=== PATIENT | female | born 1950 | race Caucasian/White ===

== ENCOUNTER → 2018-04-17 12:49 | Outpatient (CLI) | payer MEDICARE, BC, SELFPAY ==
--- NOTE | 2018-04-17 13:00 | ECHOD_ITS ---
Reason For Study: dyspnea/SOB Procedure This was a 2D Doppler, Color Flow transthoracic echocardiogram. Exam performed in department. Left Ventricle Mild concentric left ventricular hypertrophy. The estimated ejection fraction is 65 %. Stage 1 diastolic dysfunction. No regional wall motion abnormalities noted. Right Ventricle Normal size and thickness. Normal systolic function. Atria Normal left atrium. Normal right atrium. Normal atrial septum. Mitral Valve Mild diffuse mitral valve thickening. Severe mitral annular calcification extending into the posterior leaflet. Trivial mitral valve insufficiency. Tricuspid Valve Normal tricuspid valve. Trivial tricuspid valve insufficiency. Right ventricular systolic pressure estimated to be 34 mmHg. Aortic Valve Trisinus/trileaflet aortic valve. Mild diffuse aortic valve thickening. Mild aortic stenosis. Pulmonic Valve Normal pulmonic valve. Great Vessels Normal aortic root. Normal arch. Normal inferior vena cava. Inferior vena cava collapse with sniff. Pericardium/Pleural No pericardial effusion. MMode/2D Measurements & Calculations LVIDd: 4.2 cm IVSd: 1.3 cm Ao root diam: 3.3 cm LVIDs: 2.8 cm LVPWd: 1.2 cm LA dimension: 4.2 cm RVDd: 2.6 cm FS: 34.5 % LAV(MOD-bp): 65.3 ml EDV(MOD-sp4): 72.7 ml EDV(MOD-sp2): 68.8 ml LAV(MOD-bp) Indexed: 39.2 ml/m2 ESV(MOD-sp4): 33.1 ml EF(MOD-sp2): 63.3 % LAV(MOD-sp2): 65.6 ml EF(MOD-sp4): 54.5 % LAV(MOD-sp4): 63.6 ml SV(MOD-sp4): 39.6 ml SV(MOD-sp2): 43.5 ml LA A4 area: 19.7 cm2 RA A4 area: 13.3 cm2 Doppler Measurements & Calculations MV E max harinder: 68.4 cm/sec Lat Peak E' Harinder: 4.9 cm/sec Med Peak E' Harinder: 3.2 cm/sec MV A max harinder: 71.8 cm/sec E/E' lat: 14.1 E/E' med: 21.5 MV E/A: 0.95 Ao V2 max: 237.3 cm/sec LV V1 max: 83.9 cm/sec PA V2 max: 73.0 cm/sec Ao max P.5 mmHg LV V1 max P.8 mmHg Ao V2 mean: 172.5 cm/sec LV V1 mean P.6 mmHg Ao mean P.7 mmHg LV V1 mean: 60.3 cm/sec Ao V2 VTI: 51.2 cm LV V1 VTI: 19.3 cm PI end-d harinder: 83.8 cm/sec TR max harinder: 257.5 cm/sec TR max P.6 mmHg Interpretation Summary The estimated ejection fraction is 65 %. Stage 1 diastolic dysfunction. Right ventricular systolic pressure estimated to be 34 mmHg. Mild aortic stenosis. Mild concentric left ventricular hypertrophy. There is no comparison study available. Ordering Physician: Armando Wade Referring Physician: Armando Wade Performed By: Yessy Troy RDCS, RVT
== END ==
PROVIDERS: Family Provider Family Medicine; PCP Family Medicine; Visit Provider Internal Medicine Cardiovascular Disease
DX: R06.02 Shortness of breath (principal); F17.200 Nicotine dependence, unspecified, uncomplicated
CPT/HCPCS: 93306

== ENCOUNTER → 2018-04-24 12:36 | Outpatient (CLI) | payer MEDICARE, BC, SELFPAY ==
--- NOTE | 2018-04-24 12:42 | STE_ITS ---
Reason For Study: SOB Stress Results Protocol: Stress Echocardiogram Maximum Predicted HR: 153 bpm Target HR: 130 bpm% Maximum Pr edicted HR: 92 % DurationHeart Rate Stage (mm:ss) (bpm) BPCom ment Baseline 1:02 14 0 98/ Wolfgang Protocol- Stage 1 3:00 93 138/98 Wolfgang Protocol- Stage 2 3:00 10 6 142/84SOB Wolfgang Protocol- Stage 3 0:38 11 1 / leg fatigue Recovery 70 140/80 Stress Duration: 7:40 mm:ss Maximum Stress HR: 140 bpm Baseline Echocardiogram Findings The estimated ejection fraction is 65 %. Mild concentric left ventricular hypertrophy. Stress Echo Wall motion Data Resting WMIntermediate WMStress WM Resting Wall Motion Wall Motion Stress No regional wall motion No regional wall motion abnormalities noted. abnormalities noted. EKG Data The baseline ECG displays normal sinus rhythm. The patient exercised according to the regular Wolfgang protocol for a total duration of 6:37. The maximum heart rate attained was 111 beats per minute. This was 72% of maximum predicted heart rate. The patient exercised into stage 3 of the Wolfgang protocol. During stress, there were no ST or T wave changes noted to suggest ischemia. No arrhythmias noted. Interpretation Summary The estimated ejection fraction is 65 %. Normal, submaximal, treadmill echocardiogram. Negative for ischemia by EKG and echocardiographic criteria. No anginal symptoms noted. No arrhytmias noted. Appropriate blood pressure response to exercise. Average exercise capacity for age. Test terminated due to leg discomfort and dyspnea. Final LVEF is 75%. Decreased sensitivity due to failure to reach target HR. Ordering Physician: Armando Wade Referring Physician: Armando Wade Performed By: Lydia Price RDCS
== END ==
PROVIDERS: Family Provider Family Medicine; PCP Family Medicine; Visit Provider Internal Medicine Cardiovascular Disease
DX: R06.02 Shortness of breath (principal); R06.00 Dyspnea, unspecified; I10 Essential (primary) hypertension
CPT/HCPCS: 93017; 93350

== ENCOUNTER 2018-10-28 18:55 | Inpatient (IN) | payer MEDICARE, BC, SELFPAY ==
[2018-10-28 18:58] VITALS: BMI 25.8
--- NOTE | 2018-10-28 20:38 | HP.PCM_ITS ---
History of Present Illness Date of Admission: 10/28/18 Chief Complaint: lethargy and generalised pain The patient is a 68 year old F with past medical history of primary sclerosing cholangitis, hypertension and sicca. She was brought in as a direct admit from [facility] on account of incidental finding of low platelets. She had been to [facility] complaint of generalized malaise and feeling tired and having a cough and back pain. As part of her workup, CBC was done which showed platelets of 15,000. Decision was made to the for transfer to [facility]. She is never had such low platelets before and denied any nasal bleed or hematuria or rash. She denied any fever chills, denies taking any antibiotics recently, and palpitations, any abdominal pain, any diarrhea vomiting. She also denied any recent exposure to heparin or Lovenox. She did admit to back pain which she states recently started. Review of systems otherwise negative. She is been admitted to [facility] for thrombocytopenia. [] Past Medical History Past Medical History (Chronic Problems): Chronic Problems (Last Updated 04/03/18 @ 14:44 by Debi Mccabe) Nicotine dependence (Chronic) Hypertension (Chronic) Medical History: Medical History (Last Updated 04/03/18 @ 14:44 by Debi Mccabe) Nicotine dependence (Chronic) F17.200 Hypertension (Chronic) I10 Anxiety F41.9 Biliary cirrhosis K74.5 Esophageal varices I85.00 Mixed hyperlipidemia E78.2 Osteoarthritis M19.90 RLS (restless legs syndrome) G25.81 Sicca M35.00 Spondylosis M47.9 Vertigo R42 Allergies ciprofloxacin Adverse Reaction (Verified 04/03/18 14:34) unkn gabapentin Adverse Reaction (Verified 04/03/18 14:39) hallucination guaifenesin Adverse Reaction (Verified 04/03/18 14:34) racing heart Home Medications: Ambulatory Orders Medication Instructions Recorded alprazolam 0.25 mg tablet 0.25 mg PO BID-TID PRN 03/30/18 meclizine 25 mg tablet 25 mg PO BID PRN 03/30/18 ursodiol 250 mg tablet 250 mg PO BID tab 03/30/18 ranitidine 150 mg capsule 150 mg PO QHS cap 04/03/18 Dextran 70/Hypromellose [Nature's 2 ml OP 4X/DAY 10/28/18 Tears Eye Drops] Nadolol 80 mg PO QDAY 10/28/18 Surgical History: Surgical History (Last Updated 04/03/18 @ 14:51 by Debi Mccabe) History of esophagogastroduodenoscopy Z98.890 Psychiatric History: Attn. deficit disorder MANAGER FORENSIC History: No pertinent MANAGER FORENSIC history Lives: With Family Smoking Status: Current every day smoker Tobacco Use: Cigarettes Alcohol: Occasional Drugs: None - *Family History Maternal Family History: Family History (Last Updated 04/03/18 @ 14:52 by Debi Mccabe) Mother CVA (cerebral vascular accident) Hypertension Father CVA (cerebral vascular accident) Hypertension Brother Heart disease History Items: No pertinent history Review of Systems Constitutional: Reports: Malaise, Weakness, Fatigue. Denies: Anorexia, Chills, Fever, Night Sweats Eyes: Denies: Blurred vision HEENT: Denies: Head Aches, Sinus Congestion, Sinus Drainage Cardiovascular: Denies: Chest Pain, Chest Pressure, Chest Tightness, Palpitations Respiratory: Denies: Cough, Pleuritic Pain, Shortness of Breath, Shortness of breath at rest, Shortness of breath upon exertion, Sputum production Gastrointestinal: Denies: Abdominal Pain, Nausea, Vomiting Genitourinary: Denies: Dysuria Musculoskeletal: Reports: Back Pain, Leg Pain - complains of pain at the back of her lef thigh, which she thinks is due to a muscle she pulled. Denies: Arm Pain, Hand Pain, Joint Pain Skin: Denies: Rash, Wounds Neurological: Denies: Numbness, Tingling, Focal weakness Psychiatric: Denies: Anxiety, Depression, Homicidal Ideations, Suicidal Ideations Hematologic/ Lymphatic: Denies: Easy Bruising, Easy Bleeding VTE Information - Inpt Only VTE Present on Admission: No VTE Mechan Device Prophylaxis: SCD's Reason prophylaxis not ordered:: Medical Contraindication - thrombocytopenia - Physical Exam General: Alert, Oriented x3, Cooperative, No apparent distress HEENT: Atraumatic, PERRLA, EOMI, Normocephalic Oral: Dry Mucosa Neck: Supple, No JVD, Negative Carotid Bruits Lungs: Clear to auscultation, Normal air movement, No rhonchi, No wheeze, No rales Cardiovascular: Regular rate, Regular Rhythm, Normal S1, Normal S2, No murmurs Abdomen: Bowel Sounds Present, Soft, Non Tender, Non-Distended, No Hepato- splenomegaly Extremities: No clubbing, No cyanosis, No edema, Capillary Refill Less than 3 Seconds Skin: No breakdown, Ulcer/ Wound, - - petechial rash on both LEs Musculoskeletal: No Tenderness to Palpation of Joints or Extremities Lymphatic: No Cervical, Supraclavicular, or Inguinal Adenopathy Neurological: Cranial nerves II-XII grossly intact, Neuro grossly intact, Motor Exam 5/5 strength throughout Psych/Mental Status: Normal Affect, Appropriate, Alert and oriented to time, place, person, mood and affect Weight: 141 lb 5.061 oz Body Mass Index (BMI) 25.8 Assessment/Plan 68 y/o admitted with a complaint of generalised malaise, and back pain 1. 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 Petechial rash due to thrombocytopenia * rash on lower extremities. No other evidence of bleeding. * Will monitor for resolution. * 3. History of primary sclerosing cholangitis * on ursodiol and nadolol 4. Hypertension: on nadolol, which is also for her varices from [facility] 5. Sicca: will give natural tears 6. ?UTI * received one dose of IV rocephin in [place] o/a of suspicion for UTI * has no urinary symptoms. * UA showed LE of 25 nd >100 rbc, but no wbc or bacteria * will monitor. * DVT prophylaxis: SCDs GI prophylaxis: PPI Code Visit OBSV E&M: 49801 Initial observation care L3
--- NOTE | 2018-10-28 21:22 | RAD_ITS ---
STUDY: X-RAY - THORACIC SPINE REASON FOR EXAM: Female, 68 years old. Back pain and thrombocytopenia TECHNIQUE: 3 view(s) of the thoracic spine were obtained. COMPARISON: None. FINDINGS: Diffuse spondylosis. Normal alignment. No compression fractures are seen. Soft tissues are unremarkable. RAD/Thoracic Spine 3 Views IMPRESSION: Diffuse spondylosis with normal alignment. Electronically Signed: Ovi Rincon MD at 0:23 EST Tel , Service support ,
[2018-10-28 21:54] VITALS: BP 164/72; PULSE 72; RESP 18; TEMP 36.9; O2SAT 99
--- NOTE | 2018-10-28 21:54 | NURSING ---
IVIG initiated, pt tolerating with no signs of adverse reaction.
[2018-10-28 22:06] LABS: Absolute Lymphocyte Count 1.07 X10^3/ul (0.83-4.51); Absolute Neutrophil Count 7.8 X10^3/uL (2.0-7.7); Basophil# 0.03 X10^3/uL; Basophil% 0.3 % (0-1); Eosinophil# 0.09 X10^3/uL; Eosinophils% 0.9 % (0-5); Hematocrit 39.6 % (37-47); Hemoglobin 13.5 g/dl (12.0-15.0); Lymphocyte # 1.07 X10^3/ul (4.0); Lymphocyte % 10.5 % (19-41); Mean Corp Hgb Conc 34.1 g/gl (32-36); Mean Corpuscular Hgb 28.7 pg (27.0-32.0); Mean Corpuscular Volume 84.1 fL (81-99); Monocyte# 1.22 X10^3/uL; Monocyte% 11.9 % (0-10); Neutrophil # 7.78 X10^3/uL (2.7-7.7); Neutrophil % 76.2 % (47-70); RBC Distribution Width CV 13.9 % (11.6-14.6); RBC Distribution Width SD 43.5 fl (35.1-43.9); Red Blood Count 4.71 M/mm3 (4.2-5.4); White Blood Count 10.2 K/mm3 (4.4-11.0)
[2018-10-28 22:09] VITALS: BP 162/78; PULSE 77; RESP 16; TEMP 36.9; O2SAT 100
[2018-10-28 22:14] LABS: Differential Indicated SCAN CRITERIA MET; POSITIVE COUNT YES; POSITIVE DIFFERENTIAL NO; POSITIVE MORPHOLOGY YES; Platelet Count 11 K/mm3 (150-450)
[2018-10-28 22:25] VITALS: BP 156/75; PULSE 82; RESP 16; TEMP 36.9; O2SAT 100
[2018-10-28 22:28] LABS: Differential Comment SCANNED
[2018-10-28 22:29] LABS: Bacteria 0 SEEN /hpf (None Seen); Mucous, Urine 0 SEEN /hpf (<or=2+); Squamous Epithelial Cells - UA 0 SEEN /hpf (5-10); White Blood Cells 0 SEEN /hpf (0-5)
[2018-10-28 22:29] LABS: Platelet Estimate MKD DEC (ADEQ)
--- NOTE | 2018-10-28 22:30 | RAD_ITS ---
STUDY: X-RAY - LUMBAR SPINE REASON FOR EXAM: Female, 68 years old. Back pain TECHNIQUE: 3 view(s) of the lumbar spine were obtained. COMPARISON: None FINDINGS: Grade 1 L4-5 anterolisthesis. L3-4, L4-5, and L5-S1 degenerative disc disease. Diffuse facet disease. No compression deformities are seen. Vascular calcifications. Osteitis pubis. RAD/Lumbar Spine 2 or 3 Views IMPRESSION: Grade 1 L4-5 anterolisthesis. Multilevel degenerative disease as described. Electronically Signed: Ovi Rincon MD at 1:54 EST Tel , Service support ,
[2018-10-28 22:35] LABS: Color, Urine Red (Yellow); Glucose, Dipstick Normal (Normal); Ketone-Dipstick 15 mg/dl (Negative); Leukocyte Esterase-Dipstick 25 /ul (Negative); Nitrite-Dipstick Negative (Negative); Occult Blood-Urine 250 /ul (Negative); Protein-Dipstick 500 mg/dl (Negative); Specific Gravity, Urine 1.015 (1.002-1.030); Urine Bilirubin Dipstick Negative (Negative); Urine Clarity Cloudy (Clear); Urine Urobilinogen 1 mg/dl (Normal)
[2018-10-28 22:46] LABS: Red Blood Cells-Urine > 100 SEEN /hpf (0-5)
[2018-10-28 23:11] VITALS: BP 181/107; PULSE 63; RESP 16; TEMP 36.9; O2SAT 99
[2018-10-28 23:26] VITALS: BP 184/91; PULSE 67; RESP 14; TEMP 36.8; O2SAT 99
[2018-10-28] MEDS: Famotidine 20 MG Tablet PO (23:31)
[2018-10-28 23:58] VITALS: PULSE 64
[2018-10-29] VITALS (11 sets, daily range): BP systolic 116–175; BP diastolic 55–103; PULSE 62–78; RESP 14–16; TEMP 36.6–37.1; O2SAT 96–100
[2018-10-29] MEDS: hydrALAZINE 20 MG/ML Vial 10 MG IV (00:29)
[2018-10-29] MEDS: HYDROcodone Bitartrate/Apap 5/325 Tablet PO ×3 (00:32→21:14)
[2018-10-29 06:41] LABS: Anion Gap 7 (5-15); BUN 31 mg/dL (7-18); BUN/Creat Ratio 27.7 RATIO (10-20); Calcium,Total 8.2 mg/dL (8.5-10.1); Chloride 103 mmol/L (98-107); Creatinine, Serum 1.12 mg/dL (0.55-1.02); EST Glomerular Filtration Rate 52 mL/min (>60); Est Glom Filt Rate - Afr Amer 62 mL/min (>60); Estimated Creatinine Clearance 38.55 ml/min; Glucose 91 mg/dL (74-106); Potassium 3.6 mmol/L (3.5-5.1); Sodium Level 133 mmol/L (136-145)
[2018-10-29 06:51] LABS: Absolute Lymphocyte Count 0.83 X10^3/ul (0.83-4.51); Absolute Neutrophil Count 3.7 X10^3/uL (2.0-7.7); Basophil# 0.03 X10^3/uL; Basophil% 0.5 % (0-1); Eosinophil# 0.14 X10^3/uL; Eosinophils% 2.5 % (0-5); Hematocrit 34.3 % (37-47); Hemoglobin 11.7 g/dl (12.0-15.0); Lymphocyte # 0.83 X10^3/ul (4.0); Lymphocyte % 14.7 % (19-41); Mean Corp Hgb Conc 34.1 g/gl (32-36); Mean Corpuscular Hgb 28.8 pg (27.0-32.0); Mean Corpuscular Volume 84.5 fL (81-99); Monocyte# 0.97 X10^3/uL; Monocyte% 17.1 % (0-10); Neutrophil # 3.67 X10^3/uL (2.7-7.7); Neutrophil % 64.8 % (47-70); Platelet Count 8 K/mm3 (150-450); RBC Distribution Width CV 14.4 % (11.6-14.6); RBC Distribution Width SD 44.6 fl (35.1-43.9); Red Blood Count 4.06 M/mm3 (4.2-5.4); White Blood Count 5.7 K/mm3 (4.4-11.0)
[2018-10-29 07:23] LABS: Differential Comment SCAN; Differential Indicated SCAN CRITERIA MET; POSITIVE COUNT YES; POSITIVE DIFFERENTIAL NO; POSITIVE MORPHOLOGY YES; Platelet Estimate MKD DEC (ADEQ)
--- NOTE | 2018-10-29 07:32 | PCM.CONS.B ---
Problem List (1) Acute ITP Status: Acute - Consult Date of Consult: 10/29/18 - Reason for Consult HPI: The patient is a 68-year-old female with a past medical history significant for rheumatoid arthritis, sicca syndrome, primary biliary cirrhosis (last EGD 03/201717 grade 1 esophageal varices) who presented to [facility] with complaints of weakness and nausea. CBC was performed and showed a platelet count of 15,000. Last CBC on record was from March 2018 that showed a platelet count in the 200,000 range. She had gross hematuria and UA microscopic was significant for gross blood, bacteria and yeast organisms. She was transferred here for further management. She denies unusual bleeding. She has significant symptoms from sicca syndrome including chronic irritated dry eyes and dry mouth. She is not receiving any symptomatic treatment for this currently. She has a history of primary biliary cirrhosis and was under the care of environmental associate at [facility] until his long term about a year ago. She also has rheumatoid arthritis with significant involvement of the MCPs. She received first dose of IVIG last evening. She has been started on prednisone 60 mg daily. Allergies ciprofloxacin Adverse Reaction (Verified 04/03/18 14:34) unkn gabapentin Adverse Reaction (Verified 04/03/18 14:39) hallucination guaifenesin Adverse Reaction (Verified 04/03/18 14:34) racing heart Current Medications Hydrocodone Bitart/Acetaminophen ([place] 5mg-325mg) 1 tablet PO Q6H PRN PRN PRN Reason: SEVERE PAIN (6-10/10) Last Admin: 10/29/18 00:32 Dose: 1 tablet Alprazolam (Xanax) 0.25 mg PO TID PRN PRN PRN Reason: restless legs Artificial Tears (Tears Naturale, Artificial Tears) 2 drop OPHTHALMIC 4X/DAY ENRIQUE Last Admin: 10/28/18 22:09 Dose: Not Given Famotidine (Pepcid) 20 mg PO QHS ENRIQUE Last Admin: 10/28/18 23:31 Dose: 20 mg Hydralazine HCl (Apresoline Iv) 10 mg IV Q6H PRN PRN PRN Reason: BLOOD PRESSURE Last Admin: 10/29/18 00:29 Dose: 10 mg Immune Globulin 60 gm/ N/A 600 mls @ 32 mls/hr IV X1 ONE Stop: 10/29/18 15:19 Last Admin: 10/28/18 23:11 Dose: 32 mls/hr Magnesium Hydroxide (Milk Of Magnesia) 30 ml PO DAILY PRN PRN PRN Reason: Constipation Meclizine HCl (Antivert) 25 mg PO BID PRN PRN PRN Reason: Vertigo Nadolol (Corgard) 80 mg PO DAILY [facility] Pantoprazole Sodium (Protonix) 40 mg PO DAILY [facility] Prednisone () 60 mg PO DAILY@0800 [facility] Sodium Chloride () 5 - 15 ml IV UD PRN PRN Reason: SALINE FLUSH Ursodiol (Kirby) 250 mg PO BID [facility] Last Admin: 10/28/18 22:12 Dose: Not Given SOC: Smoker. Lives in [place]. ROS: Constitutional: Denies episodes of fever and night sweats. Neuro: Denies PERES, recent changes in vision, hearing and balance. Denies symptoms of neuropathy. HEENT: Denies sinus pain or pressure. Denies nasal discharge. Denies recent sore throat. Resp: Denies hemoptysis. No shortness of breath at rest. CVS: Denies exertional chest pain, PND, orthopnea. Denies lower extremity edema. GI: No melena or hematochezia. : Denies dysuria, frequency. Endo: Denies hot flashes. Heat and cold intolerance. Musculoskeletal: Pain and hands, wrists, left elbow, ankles and feet.. Heme: See above. Psych: Mood has been normal. PHYSICAL EXAM: Vitals: Vital Signs Temp 97.8 F 10/29/18 04:30 Pulse 78 10/29/18 04:30 Resp 14 10/29/18 04:30 BP 138/75 H 10/29/18 04:30 Pulse Ox 100 10/29/18 04:30 Intake & Output 10/27/18 10/28/18 10/29/18 23:59 23:59 23:59 Intake Total 746 / 746 Balance 746 / 746 Weight: 64.1 kg Intake: Oral 320 / 320 IV fluid/meds 426 / 426 GENERAL: No acute distress. EYES: There is bilateral conjunctival injection. ENT: Oral mucosa is dry but there are no petechial or bleeding lesions.. NECK: Supple. LYMPHATIC: No palpable peripheral adenopathy. RESPIRATORY: Inspiratory breath sounds are of diminished intensity in all santos. No rales, wheeze or rhonchi. CARDIOVASCULAR: Rhythm is regular. Normal intensity S1/S2. ABDOMEN: The abdomen is nondistended. Generalized tenderness. No obvious fluid wave. Difficult to assess for splenomegaly. Extremities: No edema. SKIN: Excoriated lesions under the nares of both nostrils. Petechial lesions both lower extremities. NEUROLOGIC: AAO x3; No focal motor weakness. MUSCULOSKELETAL: Significant ulnar deviation of all MCPs bilaterally. Laboratory Results - last 24 hr 10/28/18 10/28/18 10/29/18 21:40 22:20 06:04 WBC 10.2 5.7 RBC 4.71 4.06 L Hgb 13.5 11.7 L Hct 39.6 34.3 L MCV 84.1 84.5 MCH 28.7 28.8 MCHC 34.1 34.1 RDW 13.9 14.4 RDW Differential 43.5 44.6 H Plt Count 11 L* 8 L* MPV TNP Immature Gran % (Auto) 0.200 0.400 Neut % (Auto) 76.2 H 64.8 Lymph % (Auto) 10.5 L 14.7 L [place] % (Auto) 11.9 H 17.1 H Eos % (Auto) 0.9 2.5 Baso % (Auto) 0.3 0.5 Absolute Neuts (auto) 7.8 H 3.7 Absolute Lymphs (auto) 1.07 0.83 Total Counted Not Reportable Not Reportable Differential Comment SCANNED SCAN Diff Path Review May foll May foll Platelet Estimate MKD DEC MKD DEC Sodium Potassium Chloride Carbon Dioxide Anion Gap BUN Creatinine Estim Creat Clear Calc Est GFR (MDRD) Af Amer Est GFR (MDRD) Non-Af BUN/Creatinine Ratio Glucose Calcium Urine Color Red Urine Clarity Cloudy Urine pH 5.0 Ur Specific [place] 1.015 Urine Protein 500 H Urine Glucose (UA) Normal Urine Ketones 15 H Urine Occult Blood 250 H Urine Nitrite Negative Urine Bilirubin Negative Urine Urobilinogen 1 H Ur Leukocyte Esterase 25 H Urine RBC > 100 SEEN Urine WBC 0 SEEN Ur Squamous Epith Cells 0 SEEN Urine Bacteria 0 SEEN Urine Mucus 0 SEEN 10/29/18 06:04 WBC RBC Hgb Hct MCV MCH MCHC RDW RDW Differential Plt Count MPV Immature Gran % (Auto) Neut % (Auto) Lymph % (Auto) [place] % (Auto) Eos % (Auto) Baso % (Auto) Absolute Neuts (auto) Absolute Lymphs (auto) Total Counted Differential Comment Diff Path Review Platelet Estimate Sodium 133 L Potassium 3.6 Chloride 103 Carbon Dioxide 23.0 Anion Gap 7 BUN 31 H Creatinine 1.12 H Estim Creat Clear Calc 38.55 Est GFR (MDRD) Af Amer 62 Est GFR (MDRD) Non-Af 52 L BUN/Creatinine Ratio 27.7 H Glucose 91 Calcium 8.2 L Urine Color Urine Clarity Urine pH Ur Specific [place] Urine Protein Urine Glucose (UA) Urine Ketones Urine Occult Blood Urine Nitrite Urine Bilirubin Urine Urobilinogen Ur Leukocyte Esterase Urine RBC Urine WBC Ur Squamous Epith Cells Urine Bacteria Urine Mucus ASSESSMENT/PLAN: 1) Thrombocytopenia. Assessment: -Presented with gross hematuria with UTI. -No other bleeding. -The degree of thrombocytopenia is out of proportion to what one would expect with hypersplenism secondary to cirrhosis. -Acute ITP working diagnosis. Likely there is been some degree of chronic thrombocytopenia in the last few months. -Tolerated IVIG well but creatinine is increased this morning. Plan: -Begin IVFs. -Repeat BMP prior to tonight's dose IVIG. -Continue prednisone. -Monitor counts.
--- NOTE | 2018-10-29 07:45 | CON.PCM_ITS ---
Problem List (1) Acute ITP Status: Acute - Consult Date of Consult: 10/29/18 - Reason for Consult HPI: The patient is a 68-year-old female with a past medical history significant for rheumatoid arthritis, sicca syndrome, primary biliary cirrhosis (last EGD 17 grade 1 esophageal varices) who presented to [facility] with complaints of weakness and nausea. CBC was performed and showed a platelet count of 15,000. Last CBC on record was from March 2018 that showed a platelet count in the 200,000 range. She had gross hematuria and UA microscopic was significant for gross blood, bacteria and yeast organisms. She was transferred here for further management. She denies unusual bleeding. She has significant symptoms from sicca syndrome including chronic irritated dry eyes and dry mouth. She is not receiving any symptomatic treatment for this currently. She has a history of primary biliary cirrhosis and was under the care of grid operator at [facility] until his assisted about a year ago. She also has rheumatoid arthritis with significant involvement of the MCPs. She received first dose of IVIG last evening. She has been started on prednisone 60 mg daily. Allergies ciprofloxacin Adverse Reaction (Verified 04/03/18 14:34) unkn gabapentin Adverse Reaction (Verified 04/03/18 14:39) hallucination guaifenesin Adverse Reaction (Verified 04/03/18 14:34) racing heart Current Medications Hydrocodone Bitart/Acetaminophen ([place] 5mg-325mg) 1 tablet PO Q6H PRN PRN PRN Reason: SEVERE PAIN (6-10/10) Last Admin: 10/29/18 00:32 Dose: 1 tablet Alprazolam (Xanax) 0.25 mg PO TID PRN PRN PRN Reason: restless legs Artificial Tears (Tears Naturale, Artificial Tears) 2 drop OPHTHALMIC 4X/DAY ENRIQUE Last Admin: 10/28/18 22:09 Dose: Not Given Famotidine (Pepcid) 20 mg PO QHS ENRIQUE Last Admin: 10/28/18 23:31 Dose: 20 mg Hydralazine HCl (Apresoline Iv) 10 mg IV Q6H PRN PRN PRN Reason: BLOOD PRESSURE Last Admin: 10/29/18 00:29 Dose: 10 mg Immune Globulin 60 gm/ N/A 600 mls @ 32 mls/hr IV X1 ONE Stop: 10/29/18 15:19 Last Admin: 10/28/18 23:11 Dose: 32 mls/hr Magnesium Hydroxide (Milk Of Magnesia) 30 ml PO DAILY PRN PRN PRN Reason: Constipation Meclizine HCl (Antivert) 25 mg PO BID PRN PRN PRN Reason: Vertigo Nadolol (Corgard) 80 mg PO DAILY [facility] Pantoprazole Sodium (Protonix) 40 mg PO DAILY [facility] Prednisone () 60 mg PO DAILY@0800 [facility] Sodium Chloride () 5 - 15 ml IV UD PRN PRN Reason: SALINE FLUSH Ursodiol (Kirby) 250 mg PO BID [facility] Last Admin: 10/28/18 22:12 Dose: Not Given SOC: Smoker. Lives in [place]. ROS: Constitutional: Denies episodes of fever and night sweats. Neuro: Denies PERES, recent changes in vision, hearing and balance. Denies symptoms of neuropathy. HEENT: Denies sinus pain or pressure. Denies nasal discharge. Denies recent sore throat. Resp: Denies hemoptysis. No shortness of breath at rest. CVS: Denies exertional chest pain, PND, orthopnea. Denies lower extremity edema. GI: No melena or hematochezia. : Denies dysuria, frequency. Endo: Denies hot flashes. Heat and cold intolerance. Musculoskeletal: Pain and hands, wrists, left elbow, ankles and feet.. Heme: See above. Psych: Mood has been normal. PHYSICAL EXAM: Vitals: Vital Signs Temp 97.8 F 10/29/18 04:30 Pulse 78 10/29/18 04:30 Resp 14 10/29/18 04:30 BP 138/75 H 10/29/18 04:30 Pulse Ox 100 10/29/18 04:30 Intake & Output 10/27/18 10/28/18 10/29/18 23:59 23:59 23:59 Intake Total 746 / 746 Balance 746 / 746 Weight: 64.1 kg Intake: Oral 320 / 320 IV fluid/meds 426 / 426 GENERAL: No acute distress. EYES: There is bilateral conjunctival injection. ENT: Oral mucosa is dry but there are no petechial or bleeding lesions.. NECK: Supple. LYMPHATIC: No palpable peripheral adenopathy. RESPIRATORY: Inspiratory breath sounds are of diminished intensity in all santos. No rales, wheeze or rhonchi. CARDIOVASCULAR: Rhythm is regular. Normal intensity S1/S2. ABDOMEN: The abdomen is nondistended. Generalized tenderness. No obvious fluid wave. Difficult to assess for splenomegaly. Extremities: No edema. SKIN: Excoriated lesions under the nares of both nostrils. Petechial lesions both lower extremities. NEUROLOGIC: AAO x3; No focal motor weakness. MUSCULOSKELETAL: Significant ulnar deviation of all MCPs bilaterally. Laboratory Results - last 24 hr 10/28/18 10/28/18 10/29/18 21:40 22:20 06:04 WBC 10.2 5.7 RBC 4.71 4.06 L Hgb 13.5 11.7 L Hct 39.6 34.3 L MCV 84.1 84.5 MCH 28.7 28.8 MCHC 34.1 34.1 RDW 13.9 14.4 RDW Differential 43.5 44.6 H Plt Count 11 L* 8 L* MPV TNP Immature Gran % (Auto) 0.200 0.400 Neut % (Auto) 76.2 H 64.8 Lymph % (Auto) 10.5 L 14.7 L [place] % (Auto) 11.9 H 17.1 H Eos % (Auto) 0.9 2.5 Baso % (Auto) 0.3 0.5 Absolute Neuts (auto) 7.8 H 3.7 Absolute Lymphs (auto) 1.07 0.83 Total Counted Not Reportable Not Reportable Differential Comment SCANNED SCAN Diff Path Review May foll May foll Platelet Estimate MKD DEC MKD DEC Sodium Potassium Chloride Carbon Dioxide Anion Gap BUN Creatinine Estim Creat Clear Calc Est GFR (MDRD) Af Amer Est GFR (MDRD) Non-Af BUN/Creatinine Ratio Glucose Calcium Urine Color Red Urine Clarity Cloudy Urine pH 5.0 Ur Specific [place] 1.015 Urine Protein 500 H Urine Glucose (UA) Normal Urine Ketones 15 H Urine Occult Blood 250 H Urine Nitrite Negative Urine Bilirubin Negative Urine Urobilinogen 1 H Ur Leukocyte Esterase 25 H Urine RBC > 100 SEEN Urine WBC 0 SEEN Ur Squamous Epith Cells 0 SEEN Urine Bacteria 0 SEEN Urine Mucus 0 SEEN 10/29/18 06:04 WBC RBC Hgb Hct MCV MCH MCHC RDW RDW Differential Plt Count MPV Immature Gran % (Auto) Neut % (Auto) Lymph % (Auto) [place] % (Auto) Eos % (Auto) Baso % (Auto) Absolute Neuts (auto) Absolute Lymphs (auto) Total Counted Differential Comment Diff Path Review Platelet Estimate Sodium 133 L Potassium 3.6 Chloride 103 Carbon Dioxide 23.0 Anion Gap 7 BUN 31 H Creatinine 1.12 H Estim Creat Clear Calc 38.55 Est GFR (MDRD) Af Amer 62 Est GFR (MDRD) Non-Af 52 L BUN/Creatinine Ratio 27.7 H Glucose 91 Calcium 8.2 L Urine Color Urine Clarity Urine pH Ur Specific [place] Urine Protein Urine Glucose (UA) Urine Ketones Urine Occult Blood Urine Nitrite Urine Bilirubin Urine Urobilinogen Ur Leukocyte Esterase Urine RBC Urine WBC Ur Squamous Epith Cells Urine Bacteria Urine Mucus ASSESSMENT/PLAN: 1) Thrombocytopenia. Assessment: -Presented with gross hematuria with UTI. -No other bleeding. -The degree of thrombocytopenia is out of proportion to what one would expect with hypersplenism secondary to cirrhosis. -Acute ITP working diagnosis. Likely there is been some degree of chronic thrombocytopenia in the last few months. -Tolerated IVIG well but creatinine is increased this morning. Plan: -Begin IVFs. -Repeat BMP prior to tonight's dose IVIG. -Continue prednisone. -Monitor counts.
[2018-10-29] MEDS: 0.9% Normal Saline 1,000 ML 125 ML IV ×2 (08:57→17:06)
[2018-10-29] MEDS: predniSONE 20 MG Tablet 60 MG PO (08:58)
[2018-10-29] MEDS: Nadolol 40 MG Tablet 80 MG PO (09:20)
[2018-10-29] MEDS: Pantoprazole Sodium 40 MG Tablet PO (09:22)
--- NOTE | 2018-10-29 09:30 | CASEMGMT ---
RN IRINA Face to Face with patient for initial transition planning/care coordination assessment. RN CM introduced self and role at [facility]. Patient lying in bed, alert and oriented. Patient willing to participate in assessment and is able to answer all questions appropriately. Care providers, pharmacy, and demographics verified. Patient wishes to discharge home, denies need for home health at this time. Patient states she has no further needs or concerns at this time. CM to follow for discharge planning needs that may arise. PCP: Malcolm Mueller Specialists: None Preferred Pharmacy: [facility] Insurance: rickey DOMINGUEZ Prescription Benefit: Yes Living Will/HPOA: Yes, patient cannot remember who is HPOA LNOK: Sons Living Arrangements: Patient lives with son in 2 story home, patient independent Transportation: Self or sons DME/HHC: Patient denies needs for HHC or DME Disposition Plan: Patient to discharge with family support and follow-up plans in place. Mattie PIZARRO, RN, CM
--- NOTE | 2018-10-29 09:33 | PCM.PN.HOSP ---
Patient Problems: Active and Suspected Problems (Last Updated 04/03/18 @ 14:44 by Debi Mccabe) Acute ITP (Acute) Subjective: back pain, chronic, which is why she was sleeping on the couch. Vitals/I&O's: Vital Signs Temp Pulse Resp BP Pulse Ox 37.1 C 76 16 144/79 H 96 10/29/18 08:58 10/29/18 08:58 10/29/18 08:58 10/29/18 08:58 10/29/18 08:58 Oxygen Delivery Method Room Air Weight: 64.1 kg Body Mass Index (BMI) 25.8 Intake and Output for Last 24 Hours 10/27/18 10/28/18 10/29/18 23:59 23:59 23:59 Intake Total 746 / 746 Balance 746 / 746 General: Alert, Cooperative, No apparent distress HEENT: Atraumatic, Normocephalic Oral: Moist Mucosa, No Gingival or Mucosal Lesions/ Ulcerations Neck: No Nodes, Thyroid Normal Size and Texture Lungs: Clear to auscultation, Normal air movement, No rhonchi, No wheeze Cardiovascular: Regular rate, Regular Rhythm, Normal S1, Normal S2, No murmurs Abdomen: Bowel Sounds Present, Soft, Non Tender, Non-Distended, No Hepato-splenomegaly Extremities: No edema, No Calf Tenderness Musculoskeletal: - - ulnar deviation of digits. Psych/Mental Status: Normal Affect, Appropriate Laboratory Results 10/28/18 21:40: WBC 10.2, RBC 4.71, Hgb 13.5, Hct 39.6, MCV 84.1, MCH 28.7, MCHC 34.1, RDW 13.9, RDW Differential 43.5, Plt Count 11 L*, MPV TNP, Immature Gran % (Auto) 0.200, Neut % (Auto) 76.2 H, Lymph % (Auto) 10.5 L, [place] % (Auto) 11.9 H, Eos % (Auto) 0.9, Baso % (Auto) 0.3, Absolute Neuts (auto) 7.8 H, Absolute Lymphs (auto) 1.07, Total Counted Not Reportable, Differential Comment SCANNED, Diff Path Review March, Platelet Estimate MKD 10/28/18 22:20: Urine Color Red, Urine Clarity Cloudy, Urine pH 5.0, Ur Specific [place] 1.015, Urine Protein 500 H, Urine Glucose (UA) Normal, Urine Ketones 15 H, Urine Occult Blood 250 H, Urine Nitrite Negative, Urine Bilirubin Negative, Urine Urobilinogen 1 H, Ur Leukocyte Esterase 25 H, Urine RBC > 100 SEEN, Urine WBC 0 SEEN, Ur Squamous Epith Cells 0 SEEN, Urine Bacteria 0 SEEN, Urine Mucus 0 SEEN 10/29/18 06:04: WBC 5.7, RBC 4.06 L, Hgb 11.7 L, Hct 34.3 L, MCV 84.5, MCH 28.8, MCHC 34.1, RDW 14.4, RDW Differential 44.6 H, Plt Count 8 L*, Immature Gran % (Auto) 0.400, Neut % (Auto) 64.8, Lymph % (Auto) 14.7 L, [place] % (Auto) 17.1 H, Eos % (Auto) 2.5, Baso % (Auto) 0.5, Absolute Neuts (auto) 3.7, Absolute Lymphs (auto) 0.83, Total Counted Not Reportable, Differential Comment SCAN, Diff Path Review March foll, Platelet Estimate MKD 10/29/18 06:04: Sodium 133 L, Potassium 3.6, Chloride 103, Carbon Dioxide 23.0, Anion Gap 7, BUN 31 H, Creatinine 1.12 H, Estim Creat Clear Calc 38.55, Est GFR (MDRD) Af Amer 62, Est GFR (MDRD) Non-Af 52 L, BUN/Creatinine Ratio 27.7 H, Glucose 91, Calcium 8.2 L Current Medications Hydrocodone Bitart/Acetaminophen ([place] 5mg-325mg) 1 tablet PO Q6H PRN PRN PRN Reason: SEVERE PAIN (6-10/10) Last Admin: 10/29/18 09:22 Dose: 1 tablet Alprazolam (Xanax) 0.25 mg PO TID PRN PRN PRN Reason: restless legs Artificial Tears (Tears Naturale, Artificial Tears) 2 drop OPHTHALMIC 4X/DAY [facility] Last Admin: 10/29/18 09:23 Dose: Not Given Famotidine (Pepcid) 20 mg PO QHS [facility] Last Admin: 10/28/18 23:31 Dose: 20 mg Hydralazine HCl (Apresoline Iv) 10 mg IV Q6H PRN PRN PRN Reason: BLOOD PRESSURE Last Admin: 10/29/18 00:29 Dose: 10 mg Immune Globulin 60 gm/ N/A 600 mls @ 32 mls/hr IV X1 ONE Stop: 10/29/18 15:19 Last Admin: 10/28/18 23:11 Dose: 32 mls/hr Sodium Chloride () 1,000 mls @ 125 mls/hr IV .Q8H ENRIQUE Last Admin: 10/29/18 08:57 Dose: 125 mls/hr Magnesium Hydroxide (Milk Of Magnesia) 30 ml PO DAILY PRN PRN PRN Reason: Constipation Meclizine HCl (Antivert) 25 mg PO BID PRN PRN PRN Reason: Vertigo Nadolol (Corgard) 80 mg PO DAILY [facility] Last Admin: 10/29/18 09:20 Dose: 80 mg Pantoprazole Sodium (Protonix) 40 mg PO DAILY [facility] Last Admin: 10/29/18 09:22 Dose: 40 mg Prednisone () 60 mg PO DAILY@0800 [facility] Last Admin: 10/29/18 08:58 Dose: 60 mg Sodium Chloride () 5 - 15 ml IV UD PRN PRN Reason: SALINE FLUSH Ursodiol (Kirby) 250 mg PO BID [facility] Last Admin: 10/29/18 09:20 Dose: Not Given Medical Necessity - Tobacco Use Smoking Status: Current every day smoker Tobacco Use: Cigarettes Assessment/Plan All Active Problems (Last Updated 04/03/18 @ 14:44 by Debi Mccabe) Acute ITP (Acute) 1. Acute ITP previously normal, acutely dropped. received IVIG last night and again today (will check BMP beforehand) per Dr. Saenz, if improved tomorrow, even if slight, she could be discharged home with prednisone (no taper) with follow up with hematology 2. Suspected RA obvious ulnar deviation of hands never seen a enrollment management manager advised patient, given her multiple autoimmune disorders, to see rheumatology 3. PBC need to be reestablished with GI as outpt 4. DVT proph: chemical prophylaxis is contraindicated with severe thrombocytopenia and given the severity of the thrombocytopenia, would DC SCDs as could cause bleeding/bruising. Code Visit Inpatient E&M: 58674 Subs Hosp L2
--- NOTE | 2018-10-29 09:40 | PN_ITS ---
Patient Problems: Active and Suspected Problems (Last Updated 04/03/18 @ 14:44 by Debi Mccabe) Acute ITP (Acute) Subjective: back pain, chronic, which is why she was sleeping on the couch. Vitals/I&O's: Vital Signs Temp Pulse Resp BP Pulse Ox 37.1 C 76 16 144/79 H 96 10/29/18 08:58 10/29/18 08:58 10/29/18 08:58 10/29/18 08:58 10/29/18 08:58 Oxygen Delivery Method Room Air Weight: 64.1 kg Body Mass Index (BMI) 25.8 Intake and Output for Last 24 Hours 10/27/18 10/28/18 10/29/18 23:59 23:59 23:59 Intake Total 746 / 746 Balance 746 / 746 General: Alert, Cooperative, No apparent distress HEENT: Atraumatic, Normocephalic Oral: Moist Mucosa, No Gingival or Mucosal Lesions/ Ulcerations Neck: No Nodes, Thyroid Normal Size and Texture Lungs: Clear to auscultation, Normal air movement, No rhonchi, No wheeze Cardiovascular: Regular rate, Regular Rhythm, Normal S1, Normal S2, No murmurs Abdomen: Bowel Sounds Present, Soft, Non Tender, Non-Distended, No Hepato- splenomegaly Extremities: No edema, No Calf Tenderness Musculoskeletal: - - ulnar deviation of digits. Psych/Mental Status: Normal Affect, Appropriate Laboratory Results 10/28/18 21:40: WBC 10.2, RBC 4.71, Hgb 13.5, Hct 39.6, MCV 84.1, MCH 28.7, MCHC 34.1, RDW 13.9, RDW Differential 43.5, Plt Count 11 L*, MPV TNP, Immature Gran % (Auto) 0.200, Neut % (Auto) 76.2 H, Lymph % (Auto) 10.5 L, [place] % (Auto) 11.9 H, Eos % (Auto) 0.9, Baso % (Auto) 0.3, Absolute Neuts (auto) 7.8 H, Absolute Lymphs (auto) 1.07, Total Counted Not Reportable, Differential Comment SCANNED, Diff Path Review March, Platelet Estimate MKD 10/28/18 22:20: Urine Color Red, Urine Clarity Cloudy, Urine pH 5.0, Ur Specific [place] 1.015, Urine Protein 500 H, Urine Glucose (UA) Normal, Urine Ketones 15 H, Urine Occult Blood 250 H, Urine Nitrite Negative, Urine Bilirubin Negative, Urine Urobilinogen 1 H, Ur Leukocyte Esterase 25 H, Urine RBC > 100 SEEN, Urine WBC 0 SEEN, Ur Squamous Epith Cells 0 SEEN, Urine Bacteria 0 SEEN, Urine Mucus 0 SEEN 10/29/18 06:04: WBC 5.7, RBC 4.06 L, Hgb 11.7 L, Hct 34.3 L, MCV 84.5, MCH 28.8, MCHC 34.1, RDW 14.4, RDW Differential 44.6 H, Plt Count 8 L*, Immature Gran % (Auto) 0.400, Neut % (Auto) 64.8, Lymph % (Auto) 14.7 L, [place] % (Auto) 17.1 H, Eos % (Auto) 2.5, Baso % (Auto) 0.5, Absolute Neuts (auto) 3.7, Absolute Lymphs (auto) 0.83, Total Counted Not Reportable, Differential Comment SCAN, Diff Path Review March foll, Platelet Estimate MKD 10/29/18 06:04: Sodium 133 L, Potassium 3.6, Chloride 103, Carbon Dioxide 23.0, Anion Gap 7, BUN 31 H, Creatinine 1.12 H, Estim Creat Clear Calc 38.55, Est GFR (MDRD) Af Amer 62, Est GFR (MDRD) Non-Af 52 L, BUN/Creatinine Ratio 27.7 H, Glucose 91, Calcium 8.2 L Current Medications Hydrocodone Bitart/Acetaminophen ([place] 5mg-325mg) 1 tablet PO Q6H PRN PRN PRN Reason: SEVERE PAIN (6-10/10) Last Admin: 10/29/18 09:22 Dose: 1 tablet Alprazolam (Xanax) 0.25 mg PO TID PRN PRN PRN Reason: restless legs Artificial Tears (Tears Naturale, Artificial Tears) 2 drop OPHTHALMIC 4X/DAY [facility] Last Admin: 10/29/18 09:23 Dose: Not Given Famotidine (Pepcid) 20 mg PO QHS [facility] Last Admin: 10/28/18 23:31 Dose: 20 mg Hydralazine HCl (Apresoline Iv) 10 mg IV Q6H PRN PRN PRN Reason: BLOOD PRESSURE Last Admin: 10/29/18 00:29 Dose: 10 mg Immune Globulin 60 gm/ N/A 600 mls @ 32 mls/hr IV X1 ONE Stop: 10/29/18 15:19 Last Admin: 10/28/18 23:11 Dose: 32 mls/hr Sodium Chloride () 1,000 mls @ 125 mls/hr IV .Q8H NERIQUE Last Admin: 10/29/18 08:57 Dose: 125 mls/hr Magnesium Hydroxide (Milk Of Magnesia) 30 ml PO DAILY PRN PRN PRN Reason: Constipation Meclizine HCl (Antivert) 25 mg PO BID PRN PRN PRN Reason: Vertigo Nadolol (Corgard) 80 mg PO DAILY [facility] Last Admin: 10/29/18 09:20 Dose: 80 mg Pantoprazole Sodium (Protonix) 40 mg PO DAILY [facility] Last Admin: 10/29/18 09:22 Dose: 40 mg Prednisone () 60 mg PO DAILY@0800 [facility] Last Admin: 10/29/18 08:58 Dose: 60 mg Sodium Chloride () 5 - 15 ml IV UD PRN PRN Reason: SALINE FLUSH Ursodiol (Kirby) 250 mg PO BID [facility] Last Admin: 10/29/18 09:20 Dose: Not Given Medical Necessity - Tobacco Use Smoking Status: Current every day smoker Tobacco Use: Cigarettes Assessment/Plan All Active Problems (Last Updated 04/03/18 @ 14:44 by Debi Mccabe) Acute ITP (Acute) 1. Acute ITP * previously normal, acutely dropped. * received IVIG last night and again today (will check BMP beforehand) * per Dr. Saenz, if improved tomorrow, even if slight, she could be discharged home with prednisone (no taper) with follow up with hematology 2. 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 PBC * need to be reestablished with GI as outpt 4. DVT proph: chemical prophylaxis is contraindicated with severe thrombocytopenia and given the severity of the thrombocytopenia, would DC SCDs as could cause bleeding/bruising. Code Visit Inpatient E&M: 52629 Subs Hosp L2
[2018-10-29 10:05] LABS: Pathologist Review Reviewed
[2018-10-29 10:05] LABS: Pathologist Review Reviewed
[2018-10-29 13:33] LABS: Anion Gap 7 (5-15); BUN 35 mg/dL (7-18); BUN/Creat Ratio 28.2 RATIO (10-20); Calcium,Total 8.2 mg/dL (8.5-10.1); Chloride 102 mmol/L (98-107); Creatinine, Serum 1.24 mg/dL (0.55-1.02); EST Glomerular Filtration Rate 46 mL/min (>60); Est Glom Filt Rate - Afr Amer 55 mL/min (>60); Estimated Creatinine Clearance 34.82 ml/min; Glucose 159 mg/dL (74-106); Potassium 3.6 mmol/L (3.5-5.1); Sodium Level 132 mmol/L (136-145)
[2018-10-29] MEDS: Magnesium Hydroxide 30 ML UDC PO (13:41)
--- NOTE | 2018-10-29 18:34 | NURSING ---
Dr. Tripp called in and spoke to family per request. New order obtained for platelet level this evening.
[2018-10-29] MEDS: Famotidine 20 MG Tablet PO (21:10)
[2018-10-29] MEDS: Ursodiol 250 MG Tablet PO (21:10)
[2018-10-29] MEDS: ALPRAZolam 0.25 MG Tablet PO (21:14)
[2018-10-30] VITALS (16 sets, daily range): BP systolic 126–164; BP diastolic 69–92; PULSE 53–73; RESP 16–18; TEMP 36.2–37.2; O2SAT 96–100
[2018-10-30] MEDS: 0.9% Normal Saline 1,000 ML 125 ML IV ×3 (00:26→22:01)
[2018-10-30 06:41] LABS: Absolute Lymphocyte Count 1.28 X10^3/ul (0.83-4.51); Absolute Neutrophil Count 6.1 X10^3/uL (2.0-7.7); Basophil# 0.01 X10^3/uL; Basophil% 0.1 % (0-1); Eosinophil# 0.07 X10^3/uL; Eosinophils% 0.8 % (0-5); Hemoglobin 8.8 g/dl (12.0-15.0); Lymphocyte # 1.28 X10^3/ul (4.0); Lymphocyte % 15.1 % (19-41); Mean Corp Hgb Conc 33.8 g/gl (32-36); Mean Corpuscular Hgb 28.2 pg (27.0-32.0); Mean Corpuscular Volume 83.3 fL (81-99); Monocyte# 1.04 X10^3/uL; Monocyte% 12.2 % (0-10); Neutrophil # 6.08 X10^3/uL (2.7-7.7); Neutrophil % 71.6 % (47-70); RBC Distribution Width CV 15.1 % (11.6-14.6); RBC Distribution Width SD 46.8 fl (35.1-43.9); Red Blood Count 3.12 M/mm3 (4.2-5.4); White Blood Count 8.5 K/mm3 (4.4-11.0)
[2018-10-30 06:46] LABS: Anion Gap 9 (5-15); BUN 35 mg/dL (7-18); BUN/Creat Ratio 34.3 RATIO (10-20); Calcium,Total 7.9 mg/dL (8.5-10.1); Chloride 111 mmol/L (98-107); Creatinine, Serum 1.02 mg/dL (0.55-1.02); EST Glomerular Filtration Rate 57 mL/min (>60); Est Glom Filt Rate - Afr Amer 69 mL/min (>60); Estimated Creatinine Clearance 42.33 ml/min; Glucose 98 mg/dL (74-106); Potassium 3.7 mmol/L (3.5-5.1); Sodium Level 142 mmol/L (136-145)
[2018-10-30 06:47] LABS: Differential Indicated SCAN CRITERIA MET; POSITIVE COUNT YES; POSITIVE DIFFERENTIAL NO; POSITIVE MORPHOLOGY YES; Platelet Count 8 K/mm3 (150-450)
--- NOTE | 2018-10-30 06:51 | NURSING ---
Platelet results of 8 given to Gisela RIVAS.
[2018-10-30 06:59] LABS: Anisocytosis 1+; Platelet Estimate MKD DEC (ADEQ)
[2018-10-30] MEDS: Pantoprazole Sodium 40 MG Tablet PO (08:10)
[2018-10-30] MEDS: predniSONE 20 MG Tablet 60 MG PO (08:21)
[2018-10-30] MEDS: HYDROcodone Bitartrate/Apap 5/325 Tablet PO (08:22)
[2018-10-30 09:08] LABS: Fibrinogen 322 mg/dl (203-444); International Normalized Ratio 1.2; Partial Thromboplast Time 34.3 Seconds (24.1-36.2); Prothrombin Time (Protime)PT. 15.1 SECONDS (11.7-14.9)
--- NOTE | 2018-10-30 10:34 | PCM.PROGNOTE ---
Patient Problems: Active and Suspected Problems (Last Updated 04/03/18 @ 14:44 by Debi Mccabe) Acute ITP (Acute) Subjective: Having painless gross hematuria. No other complaints. - Physical Exam General: Alert Lungs: Normal air movement Skin: - - Stable petechiae. Vital Signs Temp Pulse Resp BP Pulse Ox 97.6 F L 63 16 126/69 H 96 10/30/18 03:40 10/30/18 04:02 10/30/18 03:40 10/30/18 03:40 10/30/18 03:40 Oxygen Delivery Method Room Air Weight: 64.1 kg Body Mass Index (BMI) 25.8 Intake and Output for Last 24 Hours 10/28/18 10/29/18 10/30/18 23:59 23:59 23:59 Intake Total 746 / 746 2756 / 2756 Output Total 100 / 100 Balance 746 / 746 2656 / 2656 Laboratory Tests Past 24 Hrs 10/29/18 10/29/18 10/30/18 13:06 19:01 05:35 WBC 8.5 RBC 3.12 L Hgb 8.8 L Hct 26.0 L MCV 83.3 MCH 28.2 MCHC 33.8 RDW 15.1 H RDW Differential 46.8 H Plt Count 9 L* 8 L* Immature Gran % (Auto) 0.200 Neut % (Auto) 71.6 H Lymph % (Auto) 15.1 L [place] % (Auto) 12.2 H Eos % (Auto) 0.8 Baso % (Auto) 0.1 Absolute Neuts (auto) 6.1 Absolute Lymphs (auto) 1.28 Total Counted Not Reportable Diff Path Review May foll Platelet Estimate MKD DEC Anisocytosis 1+ PT INR APTT Fibrinogen Sodium 132 L Potassium 3.6 Chloride 102 Carbon Dioxide 23.0 Anion Gap 7 BUN 35 H Creatinine 1.24 H Estim Creat Clear Calc 34.82 Est GFR (MDRD) Af Amer 55 L Est GFR (MDRD) Non-Af 46 L BUN/Creatinine Ratio 28.2 H Glucose 159 H Calcium 8.2 L 10/30/18 10/30/18 05:35 08:40 WBC RBC Hgb Hct MCV MCH MCHC RDW RDW Differential Plt Count Immature Gran % (Auto) Neut % (Auto) Lymph % (Auto) [place] % (Auto) Eos % (Auto) Baso % (Auto) Absolute Neuts (auto) Absolute Lymphs (auto) Total Counted Diff Path Review Platelet Estimate Anisocytosis PT 15.1 H INR 1.2 APTT 34.3 Fibrinogen 322 Sodium 142 Potassium 3.7 Chloride 111 H Carbon Dioxide 22.0 Anion Gap 9 BUN 35 H Creatinine 1.02 Estim Creat Clear Calc 42.33 Est GFR (MDRD) Af Amer 69 Est GFR (MDRD) Non-Af 57 L BUN/Creatinine Ratio 34.3 H Glucose 98 Calcium 7.9 L Medical Necessity - Tobacco Use Smoking Status: Current every day smoker Tobacco Use: Cigarettes Assessment/Plan All Active Problems (Last Updated 04/03/18 @ 14:44 by Debi Mccabe) Acute ITP (Acute) 1) Acute ITP. Assessment: -Still having gross hematuria. -No other bleeding issues. -No response to IVIG as of yet. -Cr decreasing. Plan: -IVIG today 500 mg/kg. -Continue hydration. -Continue prednisone. -Monitor counts. -Recheck UA. If hematuria confirmed, then urology evaluation.
[2018-10-30] MEDS: Ursodiol 250 MG Tablet PO ×2 (10:52→22:03)
--- NOTE | 2018-10-30 11:13 | PN_ITS ---
Patient Problems: Active and Suspected Problems (Last Updated 04/03/18 @ 14:44 by Debi Mccabe) Acute ITP (Acute) Subjective: Patient is a 68-year-old female with a past medical history of rheumatoid arthritis, biliary cirrhosis, esophageal varices, hyperlipidemia, restless leg syndrome, sicca syndrome, spondylosis, hypertension and nicotine dependence who was transferred to [facility] on 10/28/2018 from [facility] when her platelets were low at 15,000. She presented to [facility] complaining of generalized fatigue, cough and back pain. She has been seen in consultation by Dr. Checo Saenz and his impression is ITP. She received 1 dose, 60 g, of IVIG has been on prednisone 60 mg daily. All events of the past 24 hours of been reviewed She is afebrile. Vital signs are stable. Hemoglobin today is 8.8, down from 11.7 on 10/29/2018. Platelets are 8000 and the white blood cell count is 8.5 today. Creatinine has improved with hydration and is 1.02 today, down from 1.24 on 10/29/2018. Sodium is within normal limits following hydration with normal saline. She reports that she has some bleeding from her nose and she thinks this is due to dry mucosa. She also reports gross hematuria. She denies chest pain or shortness of breath. - Physical Exam General: Alert, Oriented x3, Cooperative HEENT: Atraumatic, - - She has a few small scabs between the upper lip and the nose....she tells me that the skin was dry and she was picking Oral: Dry Mucosa Neck: Supple Lungs: Clear to auscultation, Normal air movement Cardiovascular: Regular rate, Regular Rhythm, Normal S1, Normal S2, No Gallop Abdomen: Bowel Sounds Present, Soft, Non-Distended, Tender - in the mid- epigastric area...mild, no guarding Extremities: No edema, - - The MCP's are swollen and there is significant ulnar deviation - she is not on any medication for RA Skin: No rashes Neurological: Cranial nerves II-XII grossly intact, Neuro grossly intact Psych/Mental Status: Normal Affect, Appropriate Vital Signs Temp Pulse Resp BP Pulse Ox 97.6 F L 63 16 126/69 H 96 10/30/18 03:40 10/30/18 04:02 10/30/18 03:40 10/30/18 03:40 10/30/18 03:40 Oxygen Delivery Method Room Air Weight: 141 lb 5.061 oz Body Mass Index (BMI) 25.8 Intake and Output for Last 24 Hours 10/28/18 10/29/18 10/30/18 23:59 23:59 23:59 Intake Total 746 / 746 2756 / 2756 Output Total 100 / 100 Balance 746 / 746 2656 / 2656 Laboratory Tests Past 24 Hrs 10/29/18 10/29/18 10/30/18 13:06 19:01 05:35 WBC 8.5 RBC 3.12 L Hgb 8.8 L Hct 26.0 L MCV 83.3 MCH 28.2 MCHC 33.8 RDW 15.1 H RDW Differential 46.8 H Plt Count 9 L* 8 L* Immature Gran % (Auto) 0.200 Neut % (Auto) 71.6 H Lymph % (Auto) 15.1 L [place] % (Auto) 12.2 H Eos % (Auto) 0.8 Baso % (Auto) 0.1 Absolute Neuts (auto) 6.1 Absolute Lymphs (auto) 1.28 Total Counted Not Reportable Diff Path Review May foll Platelet Estimate MKD DEC Anisocytosis 1+ PT INR APTT Fibrinogen Sodium 132 L Potassium 3.6 Chloride 102 Carbon Dioxide 23.0 Anion Gap 7 BUN 35 H Creatinine 1.24 H Estim Creat Clear Calc 34.82 Est GFR (MDRD) Af Amer 55 L Est GFR (MDRD) Non-Af 46 L BUN/Creatinine Ratio 28.2 H Glucose 159 H Calcium 8.2 L 10/30/18 10/30/18 05:35 08:40 WBC RBC Hgb Hct MCV MCH MCHC RDW RDW Differential Plt Count Immature Gran % (Auto) Neut % (Auto) Lymph % (Auto) [place] % (Auto) Eos % (Auto) Baso % (Auto) Absolute Neuts (auto) Absolute Lymphs (auto) Total Counted Diff Path Review Platelet Estimate Anisocytosis PT 15.1 H INR 1.2 APTT 34.3 Fibrinogen 322 Sodium 142 Potassium 3.7 Chloride 111 H Carbon Dioxide 22.0 Anion Gap 9 BUN 35 H Creatinine 1.02 Estim Creat Clear Calc 42.33 Est GFR (MDRD) Af Amer 69 Est GFR (MDRD) Non-Af 57 L BUN/Creatinine Ratio 34.3 H Glucose 98 Calcium 7.9 L Medical Necessity - Tobacco Use Smoking Status: Current every day smoker Tobacco Use: Cigarettes Assessment/Plan All Active Problems (Last Updated 04/03/18 @ 14:44 by Debi Mccabe) Acute ITP (Acute) Impressions 1. Severe thrombocytopenia-currently being treated for suspected ITP with IVIG and prednisone. She received 1 dose of IVIG 60 g and will get a second dose of 30 g today. We will continue to monitor creatinine closely. 2. Biliary cirrhosis 3. Suspected rheumatoid arthritis-she has never seen a linen supply load builder. We will check a RA today and encourage the patient to follow-up with rheumatology. 4. Probable sicca syndrome 5. Anemia-secondary to acute blood loss versus hemoconcentration at admission secondary to dehydration. BUN is out of proportion to the creatinine. Continue to follow H&H daily. She also likely has a component of anemia of chronic disease due to biliary cirrhosis and probable RA 6. Hyponatremia-resolved 7. gross hematuria? per pt Check a liver panel. check RA Encouraged her to follow up with GI for the PBC and with rheumatology to get tx to prevent further joint destruction Recheck lab in the AM IVIG 30 GM today - D/W Dr. Letty Garcia for UA and urine culture Check CBC and BMP in the a.m. Code Visit Inpatient E&M: 68469 Subs Hosp L3
[2018-10-30] MEDS: Immune Globulin 10 gm Premixed Solution IV (12:41)
[2018-10-30] MEDS: Nadolol 40 MG Tablet 80 MG PO (12:58)
[2018-10-30] MEDS: Sodium Chloride 0.65% 1 SPRAY SPRAY.BTL 2 SPRAY NASAL ×2 (13:42→22:02)
[2018-10-30] MEDS: Immune Globulin 20 gm Premixed Solution IV (14:19)
[2018-10-30 15:07] LABS: Mucous, Urine 0 SEEN /hpf (<or=2+); Squamous Epithelial Cells - UA 0 SEEN /hpf (5-10); White Blood Cells 0 SEEN /hpf (0-5)
[2018-10-30 15:15] LABS: Color, Urine Yellow (Yellow); Glucose, Dipstick Normal (Normal); Ketone-Dipstick Negative (Negative); Leukocyte Esterase-Dipstick Negative /ul (Negative); Nitrite-Dipstick Negative (Negative); Occult Blood-Urine 250 /ul (Negative); Protein-Dipstick 30 mg/dl (Negative); Urine Bilirubin Dipstick Negative (Negative); Urine Clarity Clear (Clear); Urine Urobilinogen Normal (Normal)
[2018-10-30 15:33] LABS: Bacteria 1+ /hpf (None Seen); Red Blood Cells-Urine 0-5 SEEN /hpf (0-5)
[2018-10-30] MEDS: Famotidine 20 MG Tablet PO (22:02)
[2018-10-30] MEDS: ALPRAZolam 0.25 MG Tablet PO (22:10)
[2018-10-31] VITALS (12 sets, daily range): BP systolic 144–186; BP diastolic 79–104; PULSE 65–80; RESP 16–93; TEMP 36.5–37.2; O2SAT 93–99
[2018-10-31] MEDS: 0.9% Normal Saline 1,000 ML 125 ML IV ×3 (03:13→22:38)
[2018-10-31] MEDS: hydrALAZINE 20 MG/ML Vial 10 MG IV (04:14)
[2018-10-31] MEDS: ALPRAZolam 0.25 MG Tablet PO (06:19)
[2018-10-31 06:41] LABS: Absolute Lymphocyte Count 1.68 X10^3/ul (0.83-4.51); Basophil# 0.02 X10^3/uL; Basophil% 0.2 % (0-1); Eosinophils% 1.1 % (0-5); Hemoglobin 8.2 g/dl (12.0-15.0); Lymphocyte # 1.68 X10^3/ul (4.0); Mean Corp Hgb Conc 34.2 g/gl (32-36); Mean Corpuscular Hgb 28.8 pg (27.0-32.0); Mean Corpuscular Volume 84.2 fL (81-99); Monocyte# 0.97 X10^3/uL; Neutrophil # 5.95 X10^3/uL (2.7-7.7); Neutrophil % 67.5 % (47-70); RBC Distribution Width CV 15.4 % (11.6-14.6); RBC Distribution Width SD 47.2 fl (35.1-43.9); Red Blood Count 2.85 M/mm3 (4.2-5.4); White Blood Count 8.8 K/mm3 (4.4-11.0)
[2018-10-31 06:48] LABS: ALB/GLOB Ratio 0.5 RATIO (0.9-2.4); AST(SGOT) 47 U/L (15-37); Alanine Aminotransfer ALT/SGPT 29 U/L (13-56); Albumin, Serum 2.3 g/dL (3.2-5.0); Alkaline Phosphatase 230 U/L (45-117); Anion Gap 8 (5-15); BUN 36 mg/dL (7-18); BUN/Creat Ratio 32.1 RATIO (10-20); Calcium,Total 8.1 mg/dL (8.5-10.1); Chloride 114 mmol/L (98-107); Creatinine, Serum 1.12 mg/dL (0.55-1.02); EST Glomerular Filtration Rate 52 mL/min (>60); Est Glom Filt Rate - Afr Amer 62 mL/min (>60); Estimated Creatinine Clearance 38.55 ml/min; Globulin 4.4 g/dL (2.2-4.2); Glucose 92 mg/dL (74-106); Magnesium 2.1 mg/dL (1.6-2.6); Phosphorus 2.2 mg/dL (2.5-4.9); Potassium 3.7 mmol/L (3.5-5.1); Protein, Total 6.7 g/dL (6.4-8.2); Sodium Level 141 mmol/L (136-145)
[2018-10-31 06:54] LABS: Platelet Count 13 K/mm3 (150-450)
[2018-10-31 06:55] LABS: Differential Indicated SCAN CRITERIA MET; POSITIVE COUNT YES; POSITIVE DIFFERENTIAL NO; POSITIVE MORPHOLOGY YES
--- NOTE | 2018-10-31 07:17 | NURSING ---
lab called with critical result for platelets of 13
[2018-10-31 07:27] LABS: Platelet Estimate MKD DEC (ADEQ)
[2018-10-31] MEDS: Nadolol 40 MG Tablet 80 MG PO (09:07)
[2018-10-31] MEDS: Ursodiol 250 MG Tablet PO (09:07)
[2018-10-31] MEDS: Pantoprazole Sodium 40 MG Tablet PO (09:07)
[2018-10-31] MEDS: predniSONE 20 MG Tablet 60 MG PO (09:07)
[2018-10-31] MEDS: HYDROcodone Bitartrate/Apap 5/325 Tablet PO (09:07)
--- NOTE | 2018-10-31 12:38 | PCM.PN.HOSP ---
Patient Problems: Active and Suspected Problems (Last Updated 04/03/18 @ 14:44 by Debi Mccbae) Acute ITP (Acute) Subjective: Feels a little better today, though tired. No bleeding overnight. Vitals/I&O's: Vital Signs Temp Pulse Resp BP Pulse Ox 99.0 F 73 18 179/96 H 93 10/31/18 08:50 10/31/18 08:50 10/31/18 08:50 10/31/18 08:50 10/31/18 08:50 Oxygen Delivery Method Room Air Weight: 141 lb 5.061 oz Body Mass Index (BMI) 25.8 Intake and Output for Last 24 Hours 10/29/18 10/30/18 10/31/18 23:59 23:59 23:59 Intake Total 746 / 746 6306 / 6306 2961 / 2961 Output Total 1080 / 1080 1200 / 1200 Balance 746 / 746 5226 / 5226 1761 / 1761 General: Alert, Oriented x3, Cooperative, No apparent distress HEENT: Atraumatic, EOMI, Normocephalic Oral: Dry Mucosa Neck: Supple, No JVD Lungs: Clear to auscultation, Normal air movement, No rhonchi, No wheeze, No rales Cardiovascular: Regular rate, Regular Rhythm, Normal S1, Normal S2, No murmurs Abdomen: Soft, Non Tender, Non-Distended, No Hepato-splenomegaly Extremities: No edema, Capillary Refill Less than 3 Seconds, - - destruction and ulnar deviation of MCPs Skin: No rashes, No breakdown Neurological: Neuro grossly intact, Sensory exam intact to light touch and pain Psych/Mental Status: Normal Affect, Appropriate Microbiology Past 72 Hours 10/30/18 15:00 Urine, Catheterized Urine Culture - Preliminary Culture exhibits no growth. Laboratory Results 10/30/18 15:00: Urine Color Yellow, Urine Clarity Clear, Urine pH 6.0, Ur Specific [place] 1.010, Urine Protein 30 H, Urine Glucose (UA) Normal, Urine Ketones Negative, Urine Occult Blood 250 H, Urine Nitrite Negative, Urine Bilirubin Negative, Urine Urobilinogen Normal, Ur Leukocyte Esterase Negative, Urine RBC 0-5 SEEN, Urine WBC 0 SEEN, Ur Squamous Epith Cells 0 SEEN, Urine Bacteria 1+, Urine Mucus 0 SEEN 10/31/18 05:32: WBC 8.8, RBC 2.85 L, Hgb 8.2 L, Hct 24.0 L, MCV 84.2, MCH 28.8, MCHC 34.2, RDW 15.4 H, RDW Differential 47.2 H, Plt Count 13 L*, Immature Gran % (Auto) 1.200 H, Neut % (Auto) 67.5, Lymph % (Auto) 19.0, [place] % (Auto) 11.0 H, Eos % (Auto) 1.1, Baso % (Auto) 0.2, Absolute Neuts (auto) 6.0, Absolute Lymphs (auto) 1.68, Total Counted Not Reportable, Diff Path Review March, Platelet Estimate MKD 10/31/18 05:32: Sodium 141, Potassium 3.7, Chloride 114 H, Carbon Dioxide 19.0 L, Anion Gap 8, BUN 36 H, Creatinine 1.12 H, Estim Creat Clear Calc 38.55, Est GFR (MDRD) Af Amer 62, Est GFR (MDRD) Non-Af 52 L, BUN/Creatinine Ratio 32.1 H, Glucose 92, Calcium 8.1 L, Phosphorus 2.2 L, Magnesium 2.1, Total Bilirubin 2.90 H, AST 47 H, ALT 29, Alkaline Phosphatase 230 H, Total Protein 6.7, Albumin 2.3 L, Globulin 4.4 H, Albumin/Globulin Ratio 0.5 L Current Medications Hydrocodone Bitart/Acetaminophen ([place] 5mg-325mg) 1 tablet PO Q6H PRN PRN PRN Reason: SEVERE PAIN (6-10/10) Last Admin: 10/31/18 09:07 Dose: 1 tablet Alprazolam (Xanax) 0.25 mg PO TID PRN PRN PRN Reason: restless legs Last Admin: 10/31/18 06:19 Dose: 0.25 mg Artificial Tears (Tears Naturale, Artificial Tears) 2 drop OPHTHALMIC 4X/DAY ENRIQUE Last Admin: 10/31/18 09:07 Dose: 2 drop Famotidine (Pepcid) 20 mg PO QHS ENRIQUE Last Admin: 10/30/18 22:02 Dose: 20 mg Hydralazine HCl (Apresoline Iv) 10 mg IV Q6H PRN PRN PRN Reason: BLOOD PRESSURE Last Admin: 10/31/18 04:14 Dose: 10 mg Sodium Chloride () 1,000 mls @ 125 mls/hr IV .Q8H [facility] Last Admin: 10/31/18 11:13 Dose: 125 mls/hr Magnesium Hydroxide (Milk Of Magnesia) 30 ml PO DAILY PRN PRN PRN Reason: Constipation Last Admin: 10/29/18 13:41 Dose: 30 ml Meclizine HCl (Antivert) 25 mg PO BID PRN PRN PRN Reason: Vertigo Nadolol (Corgard) 80 mg PO DAILY [facility] Last Admin: 10/31/18 09:07 Dose: 80 mg Ondansetron HCl (Zofran) 4 mg IV Q8H PRN PRN PRN Reason: NAUSEA Pantoprazole Sodium (Protonix) 40 mg PO DAILY [facility] Last Admin: 10/31/18 09:07 Dose: 40 mg Prednisone () 60 mg PO DAILY@0800 [facility] Last Admin: 10/31/18 09:07 Dose: 60 mg Sodium Chloride () 5 - 15 ml IV UD PRN PRN Reason: SALINE FLUSH Sodium Chloride ([place] Nasal [place]) 2 spray NASAL TID [facility] Last Admin: 10/31/18 05:00 Dose: Not Given Ursodiol (Kirby) 250 mg PO BID [facility] Last Admin: 10/31/18 09:07 Dose: 250 mg Medical Necessity - Tobacco Use Smoking Status: Current every day smoker Tobacco Use: Cigarettes Assessment/Plan All Active Problems (Last Updated 04/03/18 @ 14:44 by Debi Mccabe) Acute ITP (Acute) 1. Acute ITP/sicca syndrome/rheumatoid arthritis/thrombocytopenia -She was admitted from [place] for platelet count of 15,000 it had been 200,000 a few months ago -Dr. Saenz consulted to see the patient -We will continue with IVIG and steroids -On RF factor was obtained to evaluate her rheumatoid arthritis, it was elevated at 118 -She will likely need to see a wrapping machine helper as an outpatient for disease modifying agents for her rheumatoid arthritis as well as her sicca syndrome -Plan for discharge will be dependent on the extent of her thrombocytopenia -She does have a UA today this demonstrating hematuria still however given her thrombocytopenia unlikely that urology will be helpful at this moment -We will consult urology once her platelet count continues to improve and an evaluation/intervention can be performed 2. 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
--- NOTE | 2018-10-31 12:49 | PN_ITS ---
Patient Problems: Active and Suspected Problems (Last Updated 04/03/18 @ 14:44 by Debi Mccabe) Acute ITP (Acute) Subjective: Feels a little better today, though tired. No bleeding overnight. Vitals/I&O's: Vital Signs Temp Pulse Resp BP Pulse Ox 99.0 F 73 18 179/96 H 93 10/31/18 08:50 10/31/18 08:50 10/31/18 08:50 10/31/18 08:50 10/31/18 08:50 Oxygen Delivery Method Room Air Weight: 141 lb 5.061 oz Body Mass Index (BMI) 25.8 Intake and Output for Last 24 Hours 10/29/18 10/30/18 10/31/18 23:59 23:59 23:59 Intake Total 746 / 746 6306 / 6306 2961 / 2961 Output Total 1080 / 1080 1200 / 1200 Balance 746 / 746 5226 / 5226 1761 / 1761 General: Alert, Oriented x3, Cooperative, No apparent distress HEENT: Atraumatic, EOMI, Normocephalic Oral: Dry Mucosa Neck: Supple, No JVD Lungs: Clear to auscultation, Normal air movement, No rhonchi, No wheeze, No rales Cardiovascular: Regular rate, Regular Rhythm, Normal S1, Normal S2, No murmurs Abdomen: Soft, Non Tender, Non-Distended, No Hepato-splenomegaly Extremities: No edema, Capillary Refill Less than 3 Seconds, - - destruction and ulnar deviation of MCPs Skin: No rashes, No breakdown Neurological: Neuro grossly intact, Sensory exam intact to light touch and pain Psych/Mental Status: Normal Affect, Appropriate Microbiology Past 72 Hours 10/30/18 15:00 Urine, Catheterized Urine Culture - Preliminary Culture exhibits no growth. Laboratory Results 10/30/18 15:00: Urine Color Yellow, Urine Clarity Clear, Urine pH 6.0, Ur Specific [place] 1.010, Urine Protein 30 H, Urine Glucose (UA) Normal, Urine Ketones Negative, Urine Occult Blood 250 H, Urine Nitrite Negative, Urine Bilirubin Negative, Urine Urobilinogen Normal, Ur Leukocyte Esterase Negative, Urine RBC 0-5 SEEN, Urine WBC 0 SEEN, Ur Squamous Epith Cells 0 SEEN, Urine Bacteria 1+, Urine Mucus 0 SEEN 10/31/18 05:32: WBC 8.8, RBC 2.85 L, Hgb 8.2 L, Hct 24.0 L, MCV 84.2, MCH 28.8, MCHC 34.2, RDW 15.4 H, RDW Differential 47.2 H, Plt Count 13 L*, Immature Gran % (Auto) 1.200 H, Neut % (Auto) 67.5, Lymph % (Auto) 19.0, [place] % (Auto) 11.0 H, Eos % (Auto) 1.1, Baso % (Auto) 0.2, Absolute Neuts (auto) 6.0, Absolute Lymphs (auto) 1.68, Total Counted Not Reportable, Diff Path Review March, Platelet Estimate MKD 10/31/18 05:32: Sodium 141, Potassium 3.7, Chloride 114 H, Carbon Dioxide 19.0 L , Anion Gap 8, BUN 36 H, Creatinine 1.12 H, Estim Creat Clear Calc 38.55, Est GFR (MDRD) Af Amer 62, Est GFR (MDRD) Non-Af 52 L, BUN/Creatinine Ratio 32.1 H, Glucose 92, Calcium 8.1 L, Phosphorus 2.2 L, Magnesium 2.1, Total Bilirubin 2.90 H, AST 47 H, ALT 29, Alkaline Phosphatase 230 H, Total Protein 6.7, Albumin 2.3 L, Globulin 4.4 H, Albumin/Globulin Ratio 0.5 L Current Medications Hydrocodone Bitart/Acetaminophen ([place] 5mg-325mg) 1 tablet PO Q6H PRN PRN PRN Reason: SEVERE PAIN (6-10/10) Last Admin: 10/31/18 09:07 Dose: 1 tablet Alprazolam (Xanax) 0.25 mg PO TID PRN PRN PRN Reason: restless legs Last Admin: 10/31/18 06:19 Dose: 0.25 mg Artificial Tears (Tears Naturale, Artificial Tears) 2 drop OPHTHALMIC 4X/DAY ENRIQUE Last Admin: 10/31/18 09:07 Dose: 2 drop Famotidine (Pepcid) 20 mg PO QHS ENRIQUE Last Admin: 10/30/18 22:02 Dose: 20 mg Hydralazine HCl (Apresoline Iv) 10 mg IV Q6H PRN PRN PRN Reason: BLOOD PRESSURE Last Admin: 10/31/18 04:14 Dose: 10 mg Sodium Chloride () 1,000 mls @ 125 mls/hr IV .Q8H [facility] Last Admin: 10/31/18 11:13 Dose: 125 mls/hr Magnesium Hydroxide (Milk Of Magnesia) 30 ml PO DAILY PRN PRN PRN Reason: Constipation Last Admin: 10/29/18 13:41 Dose: 30 ml Meclizine HCl (Antivert) 25 mg PO BID PRN PRN PRN Reason: Vertigo Nadolol (Corgard) 80 mg PO DAILY [facility] Last Admin: 10/31/18 09:07 Dose: 80 mg Ondansetron HCl (Zofran) 4 mg IV Q8H PRN PRN PRN Reason: NAUSEA Pantoprazole Sodium (Protonix) 40 mg PO DAILY [facility] Last Admin: 10/31/18 09:07 Dose: 40 mg Prednisone () 60 mg PO DAILY@0800 [facility] Last Admin: 10/31/18 09:07 Dose: 60 mg Sodium Chloride () 5 - 15 ml IV UD PRN PRN Reason: SALINE FLUSH Sodium Chloride ([place] Nasal [place]) 2 spray NASAL TID [facility] Last Admin: 10/31/18 05:00 Dose: Not Given Ursodiol (Kir[place]) 250 mg PO BID [facility] Last Admin: 10/31/18 09:07 Dose: 250 mg Medical Necessity - Tobacco Use Smoking Status: Current every day smoker Tobacco Use: Cigarettes Assessment/Plan All Active Problems (Last Updated 04/03/18 @ 14:44 by Debi Mccabe) Acute ITP (Acute) 1. Acute ITP/sicca syndrome/rheumatoid arthritis/thrombocytopenia -She was admitted from [place] for platelet count of 15,000 it had been 200,000 a few months ago -Dr. Saenz consulted to see the patient -We will continue with IVIG and steroids -On RF factor was obtained to evaluate her rheumatoid arthritis, it was elevated at 118 -She will likely need to see a manager linux as an outpatient for disease modifying agents for her rheumatoid arthritis as well as her sicca syndrome -Plan for discharge will be dependent on the extent of her thrombocytopenia -She does have a UA today this demonstrating hematuria still however given her thrombocytopenia unlikely that urology will be helpful at this moment -We will consult urology once her platelet count continues to improve and an evaluation/intervention can be performed 2. 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
[2018-10-31 13:20] LABS: Platelet Count 9 K/mm3 (150-450)
[2018-10-31 13:24] LABS: Pathologist Review Reviewed
[2018-10-31] MEDS: 0.9% NaCl Peripheral Flush Adult/Peds IV (14:16)
[2018-10-31] MEDS: amLODIPine 10 MG Tablet PO (14:16)
--- NOTE | 2018-10-31 22:39 | NURSING ---
In to give pt evening meds, unable to fully awaken. Each attempt to arouse pt groans then continues to sleep. Attempted to sit pt up but she is unable to help. VS wnl's, BS @ 139. Requesting charge nurse Therese to come in and take a assess
--- NOTE | 2018-10-31 22:51 | CT_ITS ---
STUDY: CTA OF THE BRAIN REASON FOR EXAM: Female, 68 years old. CVA RADIATION DOSAGE (If Supplied By Facility): CTDIvol = ( 28.30 ) mGy, DLP = ( 1432.24 ) mGycm TECHNIQUE: CT angiography was performed with a multi-detector CT scanner. Data acquisition was obtained from the skull base through the vertex following intravenous administration of 75 ml of Isovue-370. MIP images were reconstructed from the axial data set. Post-processing of the angiographic images was performed, with multiplanar reformation and 3D reconstruction. Individualized dose optimization techniques were used for this CT. COMPARISON: None. FINDINGS: Normal bilateral petrous carotid arteries. Calcified right cavernous carotid artery with mild narrowing and nonvisualization of the supraclinoid bifurcation. Calcified left cavernous carotid artery with a normal supraclinoid bifurcation. Nonvisualization of the proximal right A1 segment of the anterior cerebral artery. Normal left A1 segments of the anterior cerebral artery. Normal intact anterior communicating artery (ACOM). Normal bilateral A2 segments of the anterior cerebral arteries. Occluded right middle cerebral artery. Normal left M1 and M2 segments of the middle cerebral arteries, with a normal M1 bifurcation. Nonvisualization of the posterior communicating arteries (PCOM). Normal bilateral vertebral arteries. Normal basilar artery with a normal basilar bifurcation. The visualized bilateral superior cerebellar (SCA) arteries are normal. Normal bilateral P1, P2 and visualized P3 segments of the posterior cerebral arteries. There is no demonstrated aneurysm of the tor[place] of [place]. CT/CTA Head W/WO Contrast IMPRESSION: Occluded right cavernous carotid artery bifurcation and proximal segment of the right middle cerebral and right anterior A1 segment. N.B. : The above information has been verbally conveyed by Abel Jackson DO to KASANDRA LANDAVERDE MD, on 10/31/2018 23:49:53 (ET). Electronically Signed: Abel Jackson DO at 23:42 EST Tel [phone], Service support ,
--- NOTE | 2018-10-31 22:51 | CT_ITS ---
STUDY: CTA NECK WITH AND WITHOUT CONTRAST REASON FOR EXAM: Female, 68 years old. Stroke RADIATION DOSAGE (If Supplied By Facility): CTDIvol = ( 28.30 ) mGy, DLP = ( 1432.24 ) mGycm TECHNIQUE: CT angiography with multi-detector data acquisition was performed from the aortic arch to the skull base prior to and after intravenous administration of 75ml ml of Isovue 370 contrast. MIP images were reconstructed from the axial data set. Post-processing of the angiographic images was performed, with multiplanar reformation and 3D reconstruction. Individualized dose optimization techniques were used for this CT. COMPARISON: None. FINDINGS: AORTIC ARCH: Mildly calcified visualized aortic arch. Normal origins of the brachiocephalic, left common carotid, and left subclavian arteries. RIGHT CAROTID ARTERIES: Normal right common carotid artery (CCA). Mild atherosclerotic calcifications at the right common carotid bulb. Normal origin of the right internal carotid (ICA) artery without a hemodynamically significant stenosis. Normal visualized cervical portion of the right internal carotid artery. Normal origin of the right external carotid artery (ECA). LEFT CAROTID ARTERIES: Normal left common carotid artery (CCA). Mild atherosclerotic calcifications at the left common carotid bulb. Normal origin of the left internal carotid (ICA) artery without a hemodynamically significant stenosis. Normal visualized cervical portion of the left internal carotid artery. Normal origin of the left external carotid artery (ECA). VERTEBRAL ARTERIES: Normal bilateral vertebral arteries. Bilateral paranasal sinus disease. IMPRESSION: Mild atherosclerotic calcifications at the bilateral carotid bulbs with no hemodynamically significant stenosis. Normal vertebral arteries. Electronically Signed: Abel Jackson DO at 23:46 EST Tel [phone], Service support , STUDY: CT BRAIN WITHOUT CONTRAST REASON FOR EXAM: Female, 68 years old. CVA TECHNIQUE: Transaxial CT imaging of the brain was performed without administration of intravenous contrast material. Individualized dose optimization techniques were used for this CT. COMPARISON: None. FINDINGS: Normal soft tissue structures. Normal calvarium. Normal size ventricles and extra-axial spaces for the patient's age. Bilateral white matter microangiopathic ischemic changes of the cerebral hemispheres. Normal basal ganglia and thalami. Normal brainstem. Normal cerebellum. There is no intracranial hemorrhage. There is diminished cortical medullary differentiation of right frontal region. An acute infarct cannot be excluded. Paranasal sinus disease. CT/CTA Neck W/WO Contrast IMPRESSION: There is diminished cortical medullary differentiation of right frontal region. An acute infarct cannot be excluded. Electronically Signed: Abel Jackson DO at 23:50 EST Tel [phone], Service support ,
--- NOTE | 2018-10-31 22:51 | NURSING ---
Stroke alert called @ 2245. [facility] 24 by primary nurse. Blood sugar 139. Dr. Ruiz to floor @ 2250 for assessment. verbal order for CTA entered.
--- NOTE | 2018-10-31 22:57 | NURSING ---
Called son-Vikash to let him know we are checking his mom out for a stroke she going to Ct-scan and will be in PCU.
--- NOTE | 2018-10-31 23:00 | PCM.PN.BLA ---
Progress Note Stroke alert The patient is a 68 year old F with past medical history of primary sclerosing cholangitis, hypertension and sicca. She was brought in as a direct admit from [facility] on account of incidental finding of low platelets. At our hospital she received IVIG for her idiopathic thrombocytopenia. Nursing staff called for stroke alert. The last time patient was seen normal was about one hour and 35 minutes before stroke alert was called. Per nursing staff had a NIH score was 24. At the time of my examination patient will no response to verbal stimuli. Lungs clear to auscultate Heart: S1, S2 present no murmur, gallop or rub. Assessment and plan Likely CVA. CT of head; CTA of head and neck ordered. From radiology patient to be transferred to the intensive care unit. Paged neurologist for stroke alert. CTA was interpreted by Dr. Penn who said that patient has a right MCA occlusion and patient to be transferred out preferably to [facility]. Patient is not a candidate of TPA because of severe thrombocytopenia. Her last systolic blood pressure was 160. Normal saline 100 MLS per hour was started. Called [facility] and patient was accepted. Patient will be airlifted to [facility]. Critical care time spent with patient and reviewing charts was 1hour and 30minutes. Code Visit Procedures: 15847 Critial Care 1st Hr
--- NOTE | 2018-10-31 23:00 | CM.ED ---
Social Work Note Responded to Stroke Alert on MS3. No family present at this hour. Accompanied nurse and pt to radiology for CTA. No further needs at this time. Na Guerra, [employer] OPERATOR, IN[employer]
--- NOTE | 2018-10-31 23:10 | NURSING ---
This nurse called down to Radiology to speak with product blending supervisor regarding moment to moment events from last seen w/o sx to the moment sx were noticed. Spoke with Lydia the [facility]. Escorted pt to ICU with [facility], and gave Reid TRAFFIC CONTROL FLAGGER report.
[2018-10-31 23:31] LABS: Bedside Glucose 139 mg/dL (70-110)
[2018-10-31] MEDS: 0.9% Normal Saline 1,000 ML 100 ML IV (23:41)
--- NOTE | 2018-10-31 23:41 | NURSING ---
Attempts to notify kathy Suh via phone number listed to inform of transfer to [facility]. No answer. Message left to call [facility] ICU.
--- NOTE | 2018-10-31 23:43 | DCINST_ITS ---
- Discharge Diagnoses Current Active Problems: Current Active and Chronic Problems (Last Updated 04/03/18 @ 14:44 by Debi Mccabe) Acute ITP (Acute) You will use the following diet at home:: Other - npo Discharge Activity: - - bed rest Allergies/Adverse Reactions: Allergies ciprofloxacin Adverse Reaction (Verified 04/03/18 14:34) unkn gabapentin Adverse Reaction (Verified 04/03/18 14:39) hallucination guaifenesin Adverse Reaction (Verified 04/03/18 14:34) racing heart Medications to take at Discharge alprazolam 0.25 mg tablet 0.25 mg PO BID-TID PRN 03/30/18 meclizine 25 mg tablet 25 mg PO BID PRN 03/30/18 ursodiol 250 mg tablet 250 mg PO BID tab 03/30/18 ranitidine 150 mg capsule 150 mg PO QHS cap 04/03/18 Dextran 70/Hypromellose [Nature's Tears Eye Drops] 2 ml OP 4X/DAY 10/28/18 Nadolol 80 mg PO QDAY 10/28/18 Primary Care Physician: Malcolm Mueller MD [Primary Care Provider] - Test Results: Test results from this visit will be discussed in further detail at your follow- up appointment, if applicable.
--- NOTE | 2018-10-31 23:43 | PCM.DC.SUM ---
Discharge Date and Diagnosis - Problem List Patient Problems: Active and Suspected Problems (Last Updated 04/03/18 @ 14:44 by Debi Mccabe) Acute CVA (cerebrovascular accident) (Acute) Date of Admission: 10/28/18 Date of Discharge: 10/31/18 - Primary Discharge Diagnosis Active and Suspected Problems (Last Updated 04/03/18 @ 14:44 by Debi Mccabe) Acute ITP (Acute) - Secondary Discharge Diagnosis Chronic Problems (Last Updated 04/03/18 @ 14:44 by Debi Mccabe) Nicotine dependence (Chronic) Hypertension (Chronic) Hospital Course and Treatment Imaging Results: 10/31/18 22:51 CTA Head W/WO Contrast [CT] Stat CTA Neck W/WO Contrast [CT] Stat Neurologist Summary of Care Provided: The patient is a 68 year old F who presented to [facility] because of malaise and fatigue and was transferred to the hospital because of severe thrombocytopenia. Patient was diagnosed with idiopathic thrombus cytopenia and she received IVIG. Her CBC was trended. Patient who initially had a modified Cofield score of 0 was found to have decreased level of consciousness. NIH scale was 24. Stroke alert was called. CT and CTA of head and neck was done and it showed occlusion of the right MCA and also the bifurcation of the right internal carotid. The patient was not a candidate of TPA because of his severe neutropenia with a platelet being 13,000 on the day of admission. Patient was diagnosed with acute stroke. The neurologist recommended that patient be transferred to a tertiary institution. Her blood pressure at the time of strokelike symptoms was 162/89. She was started on normal saline at 100 MLS per hour. The case was discussed with [facility] for transfer. Clinic [facility] accepted the patient and the patient was airlifted to [facility]. The nursing staff updated family. Time for discharge was 45 minutes. Patient Problems: Active and Suspected Problems (Last Updated 04/03/18 @ 14:44 by Debi Mccabe) Acute CVA (cerebrovascular accident) (Acute) - Physical Exam General: Alert, Confused HEENT: Atraumatic, Normocephalic Neck: No JVD Lungs: Clear to auscultation, Normal air movement Cardiovascular: Regular rate Abdomen: Bowel Sounds Present, Soft, Non Tender Extremities: No edema Skin: No rashes Musculoskeletal: No Muscle Wasting Neurological: - - Patient with NIH scale of 24 with complete left-sided paralysis and left facial droop and left hemianopia. Psych/Mental Status: - Vital Signs Temp Pulse Resp BP Pulse Ox 98.1 F 65 16 162/89 H 93 10/31/18 22:21 10/31/18 23:28 10/31/18 22:21 10/31/18 22:21 10/31/18 22:21 Oxygen Delivery Method Room Air Weight: 64.1 kg Body Mass Index (BMI) 25.8 Intake and Output for Last 24 Hours 10/29/18 10/30/18 10/31/18 23:59 23:59 23:59 Intake Total 746 / 746 6306 / 6306 4056 / 4056 Output Total 1080 / 1080 1550 / 1550 Balance 746 / 746 5226 / 5226 2506 / 2506 Microbiology Past 72 Hours 10/30/18 15:00 Urine Culture - Preliminary Urine, Catheterized Culture exhibits no growth. Laboratory Tests Past 24 Hrs 10/29/18 10/30/18 10/31/18 19:01 05:35 05:32 WBC 8.8 RBC 2.85 L Hgb 8.2 L Hct 24.0 L MCV 84.2 MCH 28.8 MCHC 34.2 RDW 15.4 H RDW Differential 47.2 H Plt Count 9 L* 13 L* Immature Gran % (Auto) 1.200 H Neut % (Auto) 67.5 Lymph % (Auto) 19.0 [place] % (Auto) 11.0 H Eos % (Auto) 1.1 Baso % (Auto) 0.2 Absolute Neuts (auto) 6.0 Absolute Lymphs (auto) 1.68 Total Counted Not Reportable Diff Path Review Reviewed May foll Platelet Estimate MKD DEC Sodium Potassium Chloride Carbon Dioxide Anion Gap BUN Creatinine Estim Creat Clear Calc Est GFR (MDRD) Af Amer Est GFR (MDRD) Non-Af BUN/Creatinine Ratio Glucose Calcium Phosphorus Magnesium Total Bilirubin AST ALT Alkaline Phosphatase Total Protein Albumin Globulin Albumin/Globulin Ratio 10/31/18 05:32 WBC RBC Hgb Hct MCV MCH MCHC RDW RDW Differential Plt Count Immature Gran % (Auto) Neut % (Auto) Lymph % (Auto) [place] % (Auto) Eos % (Auto) Baso % (Auto) Absolute Neuts (auto) Absolute Lymphs (auto) Total Counted Diff Path Review Platelet Estimate Sodium 141 Potassium 3.7 Chloride 114 H Carbon Dioxide 19.0 L Anion Gap 8 BUN 36 H Creatinine 1.12 H Estim Creat Clear Calc 38.55 Est GFR (MDRD) Af Amer 62 Est GFR (MDRD) Non-Af 52 L BUN/Creatinine Ratio 32.1 H Glucose 92 Calcium 8.1 L Phosphorus 2.2 L Magnesium 2.1 Total Bilirubin 2.90 H AST 47 H ALT 29 Alkaline Phosphatase 230 H Total Protein 6.7 Albumin 2.3 L Globulin 4.4 H Albumin/Globulin Ratio 0.5 L POC Glucose 10/31/18 22:28 POC Glucose 139 H Discharge Diet: - - N.p.o. Discharge Activity: - - bed rest Home Medications: Medications to take at Discharge alprazolam 0.25 mg tablet 0.25 mg PO BID-TID PRN 03/30/18 meclizine 25 mg tablet 25 mg PO BID PRN 03/30/18 ursodiol 250 mg tablet 250 mg PO BID tab 03/30/18 ranitidine 150 mg capsule 150 mg PO QHS cap 04/03/18 Dextran 70/Hypromellose [Nature's Tears Eye Drops] 2 ml OP 4X/DAY 10/28/18 Nadolol 80 mg PO QDAY 10/28/18 Primary Care Physician: Malcolm Mueller MD [Primary Care Provider] - Medical Necessity - Tobacco Use Smoking Status: Current every day smoker Tobacco Use: Cigarettes Meaningful Use Info Meaningful Use Diagnoses (Choose all that apply): Ischemic CVA - CVA Therapy Assessed for PT,OT and/or ST?: No Reason therapy not assessed?: Patient Noncompliant - Patient was transferred. - Ischemic Stroke Antithrombotic order at d/c?: No Reason antithrombotic not ordered: Medical Contraindication Dx of Atrial fib/flutter?: No Anticoagulant at discharge?: No Reason anticoagulant not ordered: Medical Contraindication Statins at discharge?: No Reason Statin not ordered: Procedure not Indicated Primary Dx Acute Ischemic CVA?: Yes IV tPA ordered during stay?: No Reason IV t-PA not ordered: Medical Contraindication Code Visit Inpatient E&M: 41643 Disch Hosp
[2018-11-01] VITALS: BP 189/122; PULSE 64; RESP 20; O2SAT 99
[2018-11-01 14:17] LABS: Pathologist Review Reviewed
== END 2018-11-01 00:25 | disposition short-term general hospital (02) | DRG 813 ==
LOC: MS3 10-31 10:31 → ICU 10-31 23:13
PROVIDERS: Internal Medicine; Internal Medicine Hematology & Oncology; Admitting Provider Student in an Organized Health Care Education/Training Program; Family Provider Family Medicine; PCP Family Medicine; Visit Provider Family Medicine
DX: D69.3 Immune thrombocytopenic purpura (principal); I63.511 Cerebral infarction due to unspecified occlusion or stenosis of right middle cerebral artery; G81.94 Hemiplegia, unspecified affecting left nondominant side; E87.1 Hypo-osmolality and hyponatremia; I85.00 Esophageal varices without bleeding; I10 Essential (primary) hypertension; R29.724 NIHSS score 24; R29.810 Facial weakness; H53.47 Heteronymous bilateral field defects; F17.210 Nicotine dependence, cigarettes, uncomplicated; R23.3 Spontaneous ecchymoses; M06.9 Rheumatoid arthritis, unspecified; R31.0 Gross hematuria; K74.5 Biliary cirrhosis, unspecified; M35.00 Sjogren syndrome, unspecified
CPT/HCPCS: 36415; 70496; 70498; 72072; 72100; 80048; 80053; 81001; 82962; 83735; 84100; 85025; 85049; 85384; 85610; 85730; 86431; 87086; J7030; Q9967; A4216; J1568